=== PATIENT | male | born 1980 | race Caucasian/White ===

== ENCOUNTER 2016-10-17 10:16 | Inpatient (IN) | payer OTHER, MEDICAID ==
[2016-10-17] MEDS ORDERED: FENTANYL CITRATE INJ/PF 100 MCG/2 ML AMPUL ONE (10:22)
[2016-10-17] MEDS ORDERED: FENTANYL CITRATE INJ/PF 100 MCG/2 ML AMPUL IV ONE ×2 (10:23→11:06)
[2016-10-17] MEDS ORDERED: NORMAL SALINE 1000 ML 1,000 ML IV ONE (10:24)
--- NOTE | 2016-10-17 10:37 | ER Document Report ---
ED General - General Stated Complaint: FALL/LEG INJURY Mode of Arrival: Medic Information source: Patient, Emergency Med Personnel Notes: 36-year-old male presents as a level II trauma after falling off a roof 10 feet landing on his feet. Patient denies any other injuries except for his feet. Denies any chest pain back pain neck pain or head injury Patient given 2 mg of Dilaudid prior to arrival TRAVEL OUTSIDE OF THE [place] IN LAST 30 DAYS: No - HPI Onset: Just prior to arrival Onset/Duration: Sudden Quality of pain: Sharp Severity: Severe Pain Level: 5 Associated symptoms: Body/muscle aches Exacerbated by: Movement Relieved by: Denies Similar symptoms previously: No Recently seen / treated by doctor: No - Related Data Allergies/Adverse Reactions: No Known Allergies Allergy (Unverified 03/14/14 12:07) Past Medical History - Social History Smoking Status: Current Every Day Smoker Cigarette use (# per day): Yes Chew tobacco use (# tins/day): No Smoking Education Provided: No Family History: DM, Hypertension Pulmonary Medical History: Reports: Hx Asthma Endocrine Medical History: Reports: Hx Diabetes Mellitus Type 2. Denies: Hx Diabetes Mellitus Type 1 Renal/ Medical History: Reports: Hx Kidney Stones GI Medical History: Reports: Hx Gastroesophageal Reflux Disease Psychiatric Medical History: Reports: Hx Post Traumatic Stress Disorder Denies: Hx Depression Past Surgical History: Reports: Hx Appendectomy - Immunizations Immunizations up to date: Yes Hx Diphtheria, Pertussis, Tetanus Vaccination: Yes Hx Pneumococcal Vaccination: 03/31/09 Course - Re-evaluation Re-evalutation: 10/17/16 10:24 Dr hernandez paged 10/17/16 10:37 Spoke with orthopedic, he is unable to evaluate patient until around 12:30, he is willing to admit patient is cleared by surgery 10/17/16 11:22 pulses are still noted throughout, will consult surgery to evaluate will get ocnsent for conscious sedation 10/17/16 11:57 Dr Melendez evaluated patient cleared otherwise, dr hernandez will admit . Procedures - Conscious Sedation Conscious sedation Time started: 10:38 Time completed: 10:50 Consent obtained: Yes Indication: ankle reduction Prior complications: Procedural sedation Emergent conditions applies.: E. - ASA Classification Airway Evaluation: Normal anatomy Mallampati Classification: Class 1 Used during procedure: Suction available, IV access obtained, Pulse ox on pt., automotive accessory installer on pt. Medications administered: Diprivan Reversal agents: None I personally performed/intraservice time: Sedation, Procedure, 30 min or less Complications: No - Immobilization Left Knee Time completed: 10:45 Pre-Proc Neuro Vasc Exam: Normal Immobilizer type: Knee immobilizer Performed by: Provider assisted, PCT Post-Proc Neuro Vasc Exam: Normal Alignment checked and good: Yes Right Ankle Time completed: 11:40 Pre-Proc Neuro Vasc Exam: Normal Immobilizer type: Long leg posterior, Posterior ankle Performed by: PCT Post-Proc Neuro Vasc Exam: Normal Alignment checked and good: Yes - Joint Reduction/Fracture Care Right Ankle Time completed: 11:40 Consent obtained: Yes Conscious sedation: Yes Pre-procedure NV exam: Yes Fracture: Closed Post-procedure NV exam: Yes Post-reduction x-ray: Joint reduced Reduction attempts: 2 - dislocated when patient moved Complications: No - pulses present throughout Critical Care Note - Critical Care Note Total time excluding time spent on procedures (mins): 45 Comments: 45 minutes of critical care time spent in direct contact evaluating and reevaluating the patient, treating symptoms, reviewing labs and studies and speaking with family and consultants excluding any procedures Discharge - Discharge Clinical Impression: fall greater than 10 feet, Traumatic injury Fracture dislocation of ankle Qualifiers: Encounter type: initial encounter Fracture type: closed Laterality: right Qualified Code(s): S82.891A - Other fracture of right lower leg, initial encounter for closed fracture Closed fracture of proximal end of left tibia Qualifiers: Encounter type: initial encounter Fracture morphology: other fracture Qualified Code(s): S82.192A - Other fracture of upper end of left tibia, initial encounter for closed fracture Condition: Fair Disposition: ADMITTED INPATIENT [facility] Surgical Floor
[2016-10-17] MEDS ORDERED: PROPOFOL INJ 200 MG/20 ML VIAL IV ONE (11:22)
[2016-10-17] MEDS ORDERED: MORPHINE SULFATE 10 MG/ML INJ IV ONE (12:09)
[2016-10-17] MEDS ORDERED: OXYCODONE-ACETAMINOPHEN 5-325 MG TABLET PO PRN (13:12)
[2016-10-17] MEDS ORDERED: HYDROMORPHONE HCL INJ/PF 2 MG/ML AMPULE IV ONE (13:43)
[2016-10-17] MEDS ORDERED: ONDANSETRON HCL INJ/PF 4 MG/2 ML SDV IV ONE (13:59)
[2016-10-17] MEDS ORDERED: ENOXAPARIN SODIUM INJ 40 MG/0.4 ML DISP.SYRIN SUBCUT ONE ×2 (14:00→18:30)
[2016-10-17 14:04] LABS: ANION GAP 19 (5-19); BLOOD UREA NITROGEN 13 mg/dL (7-20); CALCIUM 9.6 mg/dL (8.4-10.2); CARBON DIOXIDE 20 mmol/L (22-30); CHLORIDE 105 mmol/L (98-107); CREATININE RESULT 0.64 mg/dL (0.52-1.25); GLUCOSE 118 mg/dL (75-110); POTASSIUM 4.7 mmol/L (3.6-5.0); SODIUM 143.5 mmol/L (137-145)
[2016-10-17] MEDS: ONDANSETRON HCL INJ/PF 4 MG/2 ML SDV IV PRN ×2 (15:21→21:52)
[2016-10-17] MEDS ORDERED: ACETAMINOPHEN 100 ML IV ONE (16:30)
[2016-10-17] MEDS: HYDROMORPHONE HCL INJ/PF 2 MG/ML AMPULE IV PRN ×2 (18:03→21:52)
[2016-10-17] MEDS: RINGERS SOLUTION,LACTATED 1,000 ML IV PRN (18:06)
--- NOTE | 2016-10-17 18:33 | PDOC H&P ---
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 Patient was brought to the emergency room due to his inability to ambulate due to bilateral lower extremity injuries. Patient had significant pain at presentation. X-rays demonstrated fracture versus plateau and right ankle. While in the emergency patient underwent closed reduction of his right ankle fracture dislocation was placed in a splint. He has been receiving Percocet and Dilaudid some relief. Patient denies numbness or tingling. Pain 10/10 with motion but currently 7/10. Patient denies headache dizziness loss of consciousness. Denies chest pain or shortness of breath. No abdominal discomfort. Past Medical History Pulmonary Medical History: Reports: Asthma Endocrine Medical History: Reports: Diabetes Mellitus Type 2 Denies: Diabetes Mellitus Type 1 GI Medical History: Reports: Gastroesophageal Reflux Disease Psychiatric Medical History: Reports: Post Traumatic Stress Disorder Denies: Depression Past Surgical History Past Surgical History: Reports: Appendectomy Social History Smoking Status: Former Smoker Cigarettes Packs Per Day: 1 Cigars Per Day: 0 Pipes Per Day: 0 Number of Years Smokin Last Time Smoked: 07/31/2016 Frequency of Alcohol Use: Social Hx Recreational Drug Use: No Hx Prescription Drug Abuse: No - Advance Directive Resuscitation Status: Full Code Family History Family History: DM, Hypertension Parental Family History Reviewed: Yes Children Family History Reviewed: Yes Sibling(s) Family History Reviewed.: No Medication/Allergy Home Medications: Albuterol Sulfate [Proair HFA Inhalation Aerosol 8.5 gm MDI] 2 puff IH Q4HP PRN 10/17/16 Budesonide/Formoterol Fumarate [Symbicort HFA 160-4.5 mcg Inhaler 6 gm] 1 puff IH Q12HP PRN 10/17/16 Montelukast Sodium [Singulair 10 mg Tablet] 10 mg PO DAILYP PRN 10/17/16 Allergies/Adverse Reactions: No Known Allergies Allergy (Unverified 03/14/14 12:07) Review of Systems Constitutional: ABSENT: chills, fever(s), headache(s), weight gain, weight loss Eyes: ABSENT: visual disturbances Ears: ABSENT: hearing changes Cardiovascular: ABSENT: chest pain, dyspnea on exertion, edema, orthropnea, palpitations Respiratory: ABSENT: cough, hemoptysis Gastrointestinal: PRESENT: other - Nausea. ABSENT: abdominal pain, constipation , diarrhea, hematemesis, hematochezia, nausea, vomiting Genitourinary: ABSENT: dysuria, hematuria Musculoskeletal: PRESENT: as per HPI Integumentary: ABSENT: rash, wounds Neurological: ABSENT: abnormal gait, abnormal speech, confusion, dizziness, focal weakness, syncope Psychiatric: ABSENT: anxiety, depression, homidical ideation, suicidal ideation Endocrine: ABSENT: cold intolerance, heat intolerance, menstrual abnormalities, polydipsia, polyuria Hematologic/Lymphatic: ABSENT: easy bleeding, easy bruising, lymphadenopathy Physical Exam Vital Signs: Temp Pulse Resp BP Pulse Ox 98.5 F 97 14 135/70 H 97 10/17/16 16:27 10/17/16 16:27 10/17/16 16:27 10/17/16 16:27 10/17/16 16:27 Intake & Output 10/16/16 10/17/16 10/18/16 06:59 06:59 06:59 Weight 85.4 kg General appearance: PRESENT: no acute distress, well-developed, well-nourished Head exam: PRESENT: atraumatic, normocephalic Eye exam: PRESENT: conjunctiva pink, EOMI, PERRLA. ABSENT: scleral icterus Ear exam: PRESENT: normal external ear exam Mouth exam: PRESENT: moist, tongue midline Neck exam: PRESENT: full ROM. ABSENT: carotid bruit, JVD, lymphadenopathy, thyromegaly Cardiovascular exam: PRESENT: RRR. ABSENT: diastolic murmur, rubs, systolic murmur Pulses: PRESENT: normal dorsalis pedis pul, +2 pedal pulses bilateral Vascular exam: PRESENT: normal capillary refill GI/Abdominal exam: PRESENT: normal bowel sounds, soft. ABSENT: distended, guarding, mass, organolmegaly, rebound, tenderness Rectal exam: PRESENT: deferred Musculoskeletal exam: PRESENT: other - Left lower extremity: Knee immobilizer removed. Compartments soft and compressible no sign of compartment syndrome. Minimal effusion. Intact plantar flexion/dorsiflexion. No calf tenderness. No pain with passive stretch. No sensory deficits. Dorsalis pedis pulse 2+. Left lower extremity: Splint clean/dry/intact. Intact flexion extension of the toes. Cap refill less than 2 seconds. No pain with passive stretch. Cap refill less than 2 seconds. Tertiary exam: No tenderness along the cervical spine or bilateral upper extremity. No abdominal discomfort. No lumbar tenderness. Neurological exam: PRESENT: alert, awake, oriented to person, oriented to place , oriented to time, oriented to situation, CN II-XII grossly intact. ABSENT: motor sensory deficit Psychiatric exam: PRESENT: appropriate affect, normal mood. ABSENT: homicidal ideation, suicidal ideation Skin exam: PRESENT: dry, intact, warm. ABSENT: cyanosis, rash Results Impressions: Abdomen/Pelvis CT 10/17/16 10:22 IMPRESSION: Nothing acute. Cervical Spine CT 10/17/16 10:22 IMPRESSION: Old left paracentral calcified disc protrusion with moderate left foraminal narrowing. No acute fracture or malalignment Chest CT 10/17/16 10:22 IMPRESSION: Nothing acute. Femur X-Ray 10/17/16 10:22 IMPRESSION: No acute fracture identified. Tibia/Fibula X-Ray 10/17/16 10:22 IMPRESSION: 1. Fracture dislocation of the tibiotalar joint. There is a fracture of the tibia most likely the medial malleolus which is displaced toward the at talus on the PA projection. 2. Comminuted fracture of the distal fibula. 3. Nondisplaced proximal right fibular fracture. 4. Comminuted proximal tibial fracture which extends through the articular surface. Ankle X-Ray 10/17/16 11:55 IMPRESSION: Fractures of the distal fibula and medial malleolus. Lower Extremity CT 10/17/16 11:56 IMPRESSION: Comminuted left proximal tibia fracture extending through the articular surfaces of the medial and lateral tibial plateaus as well as the interspinous region. About 5 mm of depression of the articular surface posterior half of the medial and lateral tibial plateaus is seen on the sagittal reconstruction views. Status: Image reviewed by me - 3 views of the right ankle demonstrates ankle fracture dislocation with medial malleolar fracture and fibula fracture. Disruption of the syndesmosis. Ankle fracture dislocation well reduced concentrically on post reduction radiographs. Multiple views of the left lower extremity study demonstrates comminuted intra-articular tibial plateau fracture. CT scan confirms comminution along the intercondylar eminences with coronal split of the medial plateau and lateral plateau involvement. CT scan of the cervical spine demonstrates chronic changes no acute abnormality appreciated. Assessment & Plan - Diagnosis (1) Closed fracture of left proximal tibia Qualifiers: Encounter type: initial encounter Fracture morphology: other fracture Qualified Code(s): S82.192A - Other fracture of upper end of left tibia, initial encounter for closed fracture Is this a current diagnosis for this admission?: Yes (2) Fracture dislocation of ankle Qualifiers: Encounter type: initial encounter Fracture type: closed Laterality : right Qualified Code(s): S82.891A - Other fracture of right lower leg, initial encounter for closed fracture Is this a current diagnosis for this admission?: YesPlan: I have reviewed patient's radiographs and studies which demonstrates to high energy injuries including a bicondylar left tibial plateau fracture and a right ankle fracture dislocation. Today we discussed treatment options and the severity of his injury along with prognosis. Patient understands he is high risk for posttraumatic arthritis for both the ankle and tibial plateau. Given the high energy nature both injuries is also risk for compartment syndrome thus I stressed the importance of elevation to decrease swelling currently there is no signs or symptoms of compartment syndrome. Given the bilateral nature we will proceed with ORIF right ankle with syndesmotic fixation first and allow swelling to subside at the left tibial plateau and proceed with that at a later date. In the meantime patient will receive 1 dose of Lovenox due to the bilateral lower extremity nature of his injury and no other alternative for DVT prophylaxis. We have discussed with the patient the alternatives for further care of this condition. They desire to proceed with surgical intervention. I explained to them the nature of the operation to be performed and the expected postoperative course. The possibility of complications is explained and these could involve anesthetic complications, posttraumatic arthritis, chronic pain, excessive bleeding, infection, injury to surrounding nerves, vessels and tendons, bruising , healing difficulties, scar formation, posttraumatic arthritis and failure to relieve symptoms. The patient expresses the desire to proceed with the operation.
[2016-10-17] MEDS: PROMETHAZINE HCL INJ 25 MG/1 ML VIAL IV PRN (18:48)
[2016-10-17] MEDS: MORPHINE SULFATE 10 MG/ML INJ IV PRN (20:50)
[2016-10-17] MEDS: DIAZEPAM 2 MG TABLET PO PRN (21:52)
[2016-10-17] MEDS: OXYCODONE-ACETAMINOPHEN 5-325 MG TABLET PO PRN (21:53)
[2016-10-18] MEDS: MORPHINE SULFATE 10 MG/ML INJ IV PRN ×4 (00:50→15:36)
[2016-10-18] MEDS: PROMETHAZINE HCL INJ 25 MG/1 ML VIAL IV PRN (00:50)
[2016-10-18] MEDS: HYDROMORPHONE HCL INJ/PF 2 MG/ML AMPULE IV PRN ×4 (01:56→20:46)
[2016-10-18] MEDS: OXYCODONE-ACETAMINOPHEN 5-325 MG TABLET PO PRN ×3 (03:46→21:59)
[2016-10-18 07:03] LABS: ABSOLUTE BASOPHILS # (AUTO) 0.1 10^3/uL (0.0-0.2); ABSOLUTE EOSINOPHILS # (AUTO) 0.2 10^3/uL (0.0-0.6); ABSOLUTE LYMPHOCYTES (AUTO) 1.8 10^3/uL (0.5-4.7); ABSOLUTE MONOCYTES (AUTO) 1.1 10^3/uL (0.1-1.4); ABSOLUTE NEUT (AUTO) 5.9 10^3/uL (1.7-8.2); BASOPHILS % (AUTO) 0.7 % (0-2); EOSINOPHILS % (AUTO) 1.8 % (0-6); HEMATOCRIT 34.1 % (37.9-51.0); HEMOGLOBIN 12.1 g/dL (13.5-17.0); HGB HCT DIFFERENCE 2.2; LYMPHOCYTES % (AUTO) 19.7 % (13-45); MEAN CORPUSCULAR HGB CONC 35.6 g/dL (32.0-36.0); MEAN CORPUSCULAR VOLUME 96 fl (80-97); MONOCYTES % (AUTO) 11.8 % (3-13); RED BLOOD COUNT 3.56 10^6/uL (4.35-5.55); RED CELL DISTRIBUTION WIDTH 12.7 % (11.5-14.0); WHITE BLOOD COUNT 8.9 10^3/uL (4.0-10.5)
[2016-10-18] MEDS ORDERED: ONDANSETRON HCL INJ/PF 4 MG/2 ML SDV ONE (07:47)
[2016-10-18] MEDS ORDERED: SUCCINYLCHOLINE CHLORIDE INJ 200 MG/10 ML VIAL ONE (07:47)
[2016-10-18] MEDS ORDERED: DEXAMETHASONE SOD PHOSPHATE INJ 4 MG/1 ML VIAL ONE (07:47)
[2016-10-18] MEDS ORDERED: LIDOCAINE 2% INJ-PF (20 MG/ML) 10 ML AMPUL ONE (07:47)
--- NOTE | 2016-10-18 08:01 | PDOC PROGRESS REPORT ---
Subjective Progress Note for:: 10/18/16 Subjective:: patient seen and evaluated this morning. Lying in bed comfortable. Continues to have pain with some improvement with the pain medication. Had difficulty sleeping last night. Denies numbness or tingling. Physical Exam Vital Signs: Temp Pulse Resp BP Pulse Ox 98.5 F 68 18 126/71 H 95 10/17/16 20:43 10/17/16 20:43 10/17/16 20:43 10/17/16 20:43 10/17/16 20:43 Intake & Output 10/17/16 10/18/16 10/19/16 06:59 06:59 06:59 Intake Total 207 Output Total 1900 Balance -1693 Weight 85.4 kg General appearance: PRESENT: no acute distress, cooperative Musculoskeletal exam: PRESENT: other - Left lower extremity: Moderate effusion. Compartments swollen but compressible. No pain with passive stretch. No sign of compartment syndrome. Intact plantar flexion/dorsiflexion. No sensory deficits. Dorsalis pedis pulse 2+. Cap refill less than 2 seconds. Right lower extremity: Splint clean/dry/intact. Intact flexion extension of the toes. Cap refill less than 2 seconds. No sensory deficits. Results Laboratory Results: 10/18/16 05:47 10/18/16 05:47 WBC 8.9 RBC 3.56 L Hgb 12.1 L Hct 34.1 L MCV 96 MCH 34.0 H MCHC 35.6 RDW 12.7 Plt Count 195 Seg Neutrophils % 66.0 Lymphocytes % 19.7 Monocytes % 11.8 Eosinophils % 1.8 Basophils % 0.7 Absolute Neutrophils 5.9 Absolute Lymphocytes 1.8 Absolute Monocytes 1.1 Absolute Eosinophils 0.2 Absolute Basophils 0.1 Impressions: Abdomen/Pelvis CT 10/17/16 10:22 IMPRESSION: Nothing acute. Cervical Spine CT 10/17/16 10:22 IMPRESSION: Old left paracentral calcified disc protrusion with moderate left foraminal narrowing. No acute fracture or malalignment Chest CT 10/17/16 10:22 IMPRESSION: Nothing acute. Femur X-Ray 10/17/16 10:22 IMPRESSION: No acute fracture identified. Tibia/Fibula X-Ray 10/17/16 10:22 IMPRESSION: 1. Fracture dislocation of the tibiotalar joint. There is a fracture of the tibia most likely the medial malleolus which is displaced toward the at talus on the PA projection. 2. Comminuted fracture of the distal fibula. 3. Nondisplaced proximal right fibular fracture. 4. Comminuted proximal tibial fracture which extends through the articular surface. Ankle X-Ray 10/17/16 11:55 IMPRESSION: Fractures of the distal fibula and medial malleolus. Lower Extremity CT 10/17/16 11:56 IMPRESSION: Comminuted left proximal tibia fracture extending through the articular surfaces of the medial and lateral tibial plateaus as well as the interspinous region. About 5 mm of depression of the articular surface posterior half of the medial and lateral tibial plateaus is seen on the sagittal reconstruction views. Assessment & Plan - Diagnosis (1) Closed fracture of left proximal tibia Qualifiers: Encounter type: initial encounter Fracture morphology: other fracture Qualified Code(s): S82.192A - Other fracture of upper end of left tibia, initial encounter for closed fracture Is this a current diagnosis for this admission?: YesPlan: Patient is comminuted intra-articular tibial plateau fracture and right ankle fracture dislocation with syndesmotic disruption. At this point the plan will be to proceed with operative intervention of the tibial plateau or ankle and then proceed with the opposite extremity a later date. We will continue to monitor his pain and symptoms of possible compartment syndrome. (2) Fracture dislocation of ankle Qualifiers: Encounter type: initial encounter Fracture type: closed Laterality : right Qualified Code(s): S82.891A - Other fracture of right lower leg, initial encounter for closed fracture Is this a current diagnosis for this admission?: Yes
[2016-10-18] MEDS: ENOXAPARIN SODIUM INJ 40 MG/0.4 ML DISP.SYRIN SUBCUT SCH (08:23)
[2016-10-18] MEDS: DIAZEPAM 2 MG TABLET PO PRN (10:06)
[2016-10-18] MEDS ORDERED: BUPIVACAINE HCL 0.5 % INJ/PF 30 ML SDV ONE (12:52)
[2016-10-18] MEDS: RINGERS SOLUTION,LACTATED 1,000 ML IV PRN ×2 (15:39→20:46)
[2016-10-18] MEDS ORDERED: CEFAZOLIN INJ 1 GM VIAL ONE (16:34)
[2016-10-18] MEDS ORDERED: FENTANYL CITRATE INJ/PF 100 MCG/2 ML AMPUL ONE ×3 (16:43→19:37)
[2016-10-18] MEDS ORDERED: MIDAZOLAM 2 MG/2 ML INJ ONE (16:43)
[2016-10-18] MEDS ORDERED: HYDROMORPHONE HCL INJ/PF 2 MG/ML AMPULE ONE (16:43)
[2016-10-18] MEDS ORDERED: PROPOFOL INJ 200 MG/20 ML VIAL IV ONE (16:44)
[2016-10-18] MEDS ORDERED: ACETAMINOPHEN 100 ML IV ONE (16:44)
[2016-10-18] MEDS ORDERED: PROMETHAZINE HCL INJ 25 MG/1 ML VIAL IV PRN (17:59)
[2016-10-18] MEDS ORDERED: MORPHINE SULFATE 10 MG/ML INJ IV PRN (17:59)
[2016-10-18] MEDS ORDERED: DIPHENHYDRAMINE HCL 50 MG/ML VIAL IV PRN (17:59)
[2016-10-18] MEDS ORDERED: MEPERIDINE HCL/PF INJ 25 MG/1 ML DISP.SYRIN IV PRN (17:59)
[2016-10-18] MEDS ORDERED: FENTANYL CITRATE INJ/PF 100 MCG/2 ML AMPUL IV PRN ×3 (17:59)
--- NOTE | 2016-10-18 19:09 | Progress Note ---
Provider Note Provider Note: In the preoperative holding area patient was noted to have increased pain which has been fairly constant but increased recently. Physical exam: Left lower extremity: Compartments are firm more swollen and less compressible. Significant pain with passive range of motion of the digits and ankle. Dorsalis pedis pulse 2+. Cap refill less than 2 seconds. No sensory deficits. Left tibial plateau fracture suspected compartment syndrome: Plan: Given patient's findings on preoperative evaluation. I have recommended intraoperative compartment pressure checks. Depending on these findings this will dictate the operative procedure as needed open reduction internal fixation versus external fixation with fasciotomies. Patient understands the risks and benefits of the surgical procedures including loss of limb with compartment syndrome. Patient verbalized understanding and consented for the procedure.
--- NOTE | 2016-10-18 19:32 | Operative Report ---
Operative Report PREOPERATIVE DIAGNOSIS: Left Tibial Plateau Fracture. Right Bimalleolar Ankle Fracture w/ Syndesmotic Disruption POSTOPERATIVE DIAGNOSIS: Same OPERATION: Emergent Four Compartment Lower Leg Fasciotomies w/ Placement of Wound VAC. External Fixation Left Tibial Plateau SURGEON: HUNTER DARLING ANESTHESIA: GA COMPLICATIONS: None ESTIMATED BLOOD LOSS: 25cc PROCEDURE: Indication for above procedure: 36-year-old male who sustained a left foot fall onto his bilateral lower extremities. He was emergently brought to emergency room where x-rays demonstrated ankle fracture dislocation and left tibial plateau fracture. In the preoperative holding area patient noted to have increased pain thus we discussed alternate operative care including possible external fixation and fasciotomy if patient's compartment are elevated. Patient understood these risks including risks and benefits of ORIF of his left tibial plateau. Patient verbalized understanding consented for the procedure. Procedure In Detail: Patient was seen and evaluated in the preoperative holding area. The left lower extremity was initialized and marked. Patient received 2g of Ancef IV for bacterial prophylaxis. Patient was taken back to the operative room where transferred to the operative table and placed under general anesthesia. Once they were adequately anesthetized a nonsterile tourniquet was placed on the left lower extremity. A surgical team debriefing was performed ensuring all instrumentation was available, the surgical procedure was discussed with possible concerns reviewed. A timeout was done identifying correct patient, procedure and extremity everyone in attendance agree with this and verbalized no concerns. The leg was prepped with alcohol. Using the Skyla needle compartment pressures were measured adjacent to the fracture. The anterior compartment pressure was 54 mmHg, lateral compartment 45, posterior 35 deep posterior 56 patient's diastolic pressure at this juncture was 70. At that point a decision to proceed with fasciotomies and external fixation. The lower extremity was prepped with ChloraPrep. It was then exsanguinated and tourniquet inflated to 300 mmHg. A 15 cm skin incision was utilized 2 cm anterior to the fibular shaft. Blunt dissection was performed down to the fascia. A transverse incision is made over the fascia the anterior and lateral compartments allowing clearview the intramuscular septum. The superficial peroneal nerve was identified adjacent to the septum. With blunt tip scissors I spread above and below the fascia on both sides of the septum. A transverse incision was made within the anterior compartment and the fascia was released aiming proximally for the patella and distally towards the center of the ankle. I then made a small transverse incision in the lateral compartment. I spread above and below the fascia and released the compartment direct incision was towards the lateral malleolus once again the superficial peroneal nerve was identified passing into the anterior compartment. I then turned my attention to the posterior and deep posterior compartments. A 15cm posteriomedial incision was made along the posterior medial aspect of the tibia. The saphenous vein was identified along with the nerve and retracted anteriorly. The superficial posterior compartment fascia was then identified. A transverse skin incision was made and using blunt-tip scissors I spread above and below the fascia which was released proximally and distally. I then elevated the soleus origin off the proximal one third of the tibia and identified the underlying FDL and tibialis posterior fascia and muscle bellies. Once again a small transverse skin incision was made within the FDL fascia taking special care to protect the neurovascular bundle lying deep to the FDL between the posterior tibialis and soleus. Once this was released in its entirety the wounds were copiously irrigated with normal saline and I turned my attention to external fixation. Two stab incisions were made proximal to the knee joint overlying the anterior aspect of the femur. Blunt dissection was performed with a hemostat down to the anterior cortex. I then drilled bicortically and placed the appropriate- sized 5 mm external fixator pins from the Kai external fixation device just engaging the cortex. Similarly 2 stab incisions were made along the anterior aspect of the tibia blunt dissection once again performed with a hemostat these were pre-drilled bicortically and the appropriate size 5 mm external fixator pins placed engaging the far cortex. I then mounted to external fixation bars proximally and distally connected at the fracture site. Maintaining close distance of the bars to the lower extremity provide further stabilization. Gentle traction was performed and under C-arm fluoroscopy I confirmed maintenance of length. Patient continued to have depression of the lateral compartment with posterior displacement of the posterior medial fragment but was living stable in the external fixator. The fasciotomy wounds once again copiously irrigated with normal saline. A wound VAC was placed laterally immediately connected by a bridge protecting the underlying skin. It was then hooked up to the vacuum device set a continuous 100 mmHg. I got good seal without leak. The external fixator pins were irrigated and covered with Xeroform and Kerlex. Sponge counts, instrument counts, needle counts counts were correct. Patient was then awoken from anesthesia. Transferred from the operating room table to the operating room stretcher. There was no intraoperative complications patient tolerated procedure well stable to PACU. Postoperative plan: Patient will be for definitive fixation of the patient's right ankle this week and likely discharged home and set up as outpatient for definitive treatment pending patient's soft tissue status.
[2016-10-19] MEDS: HYDROMORPHONE HCL INJ/PF 2 MG/ML AMPULE IV PRN ×4 (00:46→21:34)
[2016-10-19] MEDS: OXYCODONE-ACETAMINOPHEN 5-325 MG TABLET PO PRN ×3 (04:02→17:49)
--- NOTE | 2016-10-19 07:33 | PDOC PROGRESS REPORT ---
Subjective Progress Note for:: 10/19/16 Subjective:: Patient seen and evaluated this morning. States pain has improved after fasciotomy. States pressure has resolved. Denies numbness or tingling. Pain well-controlled with pain medication today. Physical Exam Vital Signs: Temp Pulse Resp BP Pulse Ox 98.6 F 98 20 132/72 H 94 10/19/16 03:57 10/19/16 03:57 10/19/16 03:57 10/19/16 03:57 10/19/16 03:57 Intake & Output 10/18/16 10/19/16 10/20/16 06:59 06:59 06:59 Intake Total 207 6127 Output Total 1900 2900 Balance -1693 3227 Weight 85.4 kg Musculoskeletal exam: PRESENT: other - Left lower extremity: External fixator intact. Blood drainage along the Kerlix at the site of the pins. Wound VAC intact good seal no leakage. Intact plantar flexion/dorsiflexion. Compartments soft and compressible. No sign of compartment syndrome. Cap refill less than 2 seconds. Dorsalis pedis pulse/posterior tibial pulses 2+. No sensory deficits. Right ankle: Splint clean/dry/intact intact flexion extension of the toes. Cap refill less than 2 seconds. No pain with passive stretch. Compartments soft and compressible no sign of compartment syndrome. Results Laboratory Results: 10/18/16 05:47 Impressions: Abdomen/Pelvis CT 10/17/16 10:22 IMPRESSION: Nothing acute. Cervical Spine CT 10/17/16 10:22 IMPRESSION: Old left paracentral calcified disc protrusion with moderate left foraminal narrowing. No acute fracture or malalignment Chest CT 10/17/16 10:22 IMPRESSION: Nothing acute. Femur X-Ray 10/17/16 10:22 IMPRESSION: No acute fracture identified. Tibia/Fibula X-Ray 10/17/16 10:22 IMPRESSION: 1. Fracture dislocation of the tibiotalar joint. There is a fracture of the tibia most likely the medial malleolus which is displaced toward the at talus on the PA projection. 2. Comminuted fracture of the distal fibula. 3. Nondisplaced proximal right fibular fracture. 4. Comminuted proximal tibial fracture which extends through the articular surface. Ankle X-Ray 10/17/16 11:55 IMPRESSION: Fractures of the distal fibula and medial malleolus. Lower Extremity CT 10/17/16 11:56 IMPRESSION: Comminuted left proximal tibia fracture extending through the articular surfaces of the medial and lateral tibial plateaus as well as the interspinous region. About 5 mm of depression of the articular surface posterior half of the medial and lateral tibial plateaus is seen on the sagittal reconstruction views. Fluoroscopy 10/18/16 00:00 IMPRESSION: Please see combined report for performance of procedure and radiologic supervision and interpretation. Knee X-Ray 10/18/16 00:00 IMPRESSION: IMAGE(S) OBTAINED DURING PROCEDURE. Assessment & Plan - Diagnosis (1) Closed fracture of left proximal tibia Qualifiers: Encounter type: initial encounter Fracture morphology: other fracture Qualified Code(s): S82.192A - Other fracture of upper end of left tibia, initial encounter for closed fracture Is this a current diagnosis for this admission?: YesPlan: Patient underwent emergent fasciotomy on 10/18/16 along external fixator for temporary stabilization of his tibial plateau fracture. Plan will be proceed with wound VAC change on 10/21/16 and concomitantly performed ORIF of either the tibial plateau with closure of the fasciotomies versus ORIF of the right ankle. Pending on intraoperative findings we will then set him up for a third and likely final procedure of either the tibial plateau or ankle depending on which extremity is definitively fixed on 10/21. (2) Fracture dislocation of ankle Qualifiers: Encounter type: initial encounter Fracture type: closed Laterality : right Qualified Code(s): S82.891A - Other fracture of right lower leg, initial encounter for closed fracture Is this a current diagnosis for this admission?: Yes
[2016-10-19] MEDS: ENOXAPARIN SODIUM INJ 40 MG/0.4 ML DISP.SYRIN SUBCUT SCH (07:57)
[2016-10-19] MEDS: MORPHINE SULFATE 10 MG/ML INJ IV PRN ×3 (07:57→20:09)
[2016-10-19] MEDS: RINGERS SOLUTION,LACTATED 1,000 ML IV PRN (11:19)
[2016-10-20] MEDS: OXYCODONE-ACETAMINOPHEN 5-325 MG TABLET PO PRN ×3 (00:07→19:53)
[2016-10-20] MEDS: MORPHINE SULFATE 10 MG/ML INJ IV PRN ×2 (00:51→05:12)
[2016-10-20] MEDS: HYDROMORPHONE HCL INJ/PF 2 MG/ML AMPULE IV PRN ×5 (01:55→23:02)
[2016-10-20] MEDS: RINGERS SOLUTION,LACTATED 1,000 ML IV PRN ×2 (01:56→18:38)
[2016-10-20 04:57] LABS: HEMATOCRIT 28.8 % (37.9-51.0); HEMOGLOBIN 10.3 g/dL (13.5-17.0); HGB HCT DIFFERENCE 2.1; MEAN CORPUSCULAR HGB CONC 35.9 g/dL (32.0-36.0); MEAN CORPUSCULAR VOLUME 95 fl (80-97); RED BLOOD COUNT 3.04 10^6/uL (4.35-5.55); RED CELL DISTRIBUTION WIDTH 12.1 % (11.5-14.0); WHITE BLOOD COUNT 9.4 10^3/uL (4.0-10.5)
[2016-10-20] MEDS ORDERED: DIPHENHYDRAMINE HCL 50 MG/ML VIAL IV PRN (07:41)
--- NOTE | 2016-10-20 07:45 | PDOC PROGRESS REPORT ---
Subjective Progress Note for:: 10/20/16 Subjective:: Patient seen and evaluated this morning. Has increased pain at the site of his fracture in the knee. Does state the pain is somewhat different than it was previously. Denies numbness or tingling. Physical Exam Vital Signs: Temp Pulse Resp BP Pulse Ox 98.7 F 85 17 152/88 H 98 10/19/16 23:28 10/19/16 23:28 10/19/16 23:28 10/19/16 23:28 10/19/16 23:28 Intake & Output 10/19/16 10/20/16 10/21/16 06:59 06:59 06:59 Intake Total 6127 3415 Output Total 2900 8300 Balance 3227 -6305 Weight 85.1 kg Musculoskeletal exam: PRESENT: other - Left lower extremity: Dressing change today. Pin sites clean/dry/intact. Compartments soft and compressible. Intact plantar flexion/dorsiflexion. Dorsalis pedis pulse 2+. Cap refill less than 2 seconds. No pain with passive stretch. No sensory deficits. Right lower extremity: Splint clean/dry/intact. Compartments soft and compressible no sign of compartment. Refill less than 2 seconds. No sensory deficits. Intact flexion extension of the toes. Results Laboratory Results: 10/20/16 03:59 10/20/16 03:59 WBC 9.4 RBC 3.04 L Hgb 10.3 L Hct 28.8 L MCV 95 MCH 34.0 H MCHC 35.9 RDW 12.1 Plt Count 173 Impressions: Abdomen/Pelvis CT 10/17/16 10:22 IMPRESSION: Nothing acute. Cervical Spine CT 10/17/16 10:22 IMPRESSION: Old left paracentral calcified disc protrusion with moderate left foraminal narrowing. No acute fracture or malalignment Chest CT 10/17/16 10:22 IMPRESSION: Nothing acute. Femur X-Ray 10/17/16 10:22 IMPRESSION: No acute fracture identified. Tibia/Fibula X-Ray 10/17/16 10:22 IMPRESSION: 1. Fracture dislocation of the tibiotalar joint. There is a fracture of the tibia most likely the medial malleolus which is displaced toward the at talus on the PA projection. 2. Comminuted fracture of the distal fibula. 3. Nondisplaced proximal right fibular fracture. 4. Comminuted proximal tibial fracture which extends through the articular surface. Ankle X-Ray 10/17/16 11:55 IMPRESSION: Fractures of the distal fibula and medial malleolus. Lower Extremity CT 10/17/16 11:56 IMPRESSION: Comminuted left proximal tibia fracture extending through the articular surfaces of the medial and lateral tibial plateaus as well as the interspinous region. About 5 mm of depression of the articular surface posterior half of the medial and lateral tibial plateaus is seen on the sagittal reconstruction views. Fluoroscopy 10/18/16 00:00 IMPRESSION: Please see combined report for performance of procedure and radiologic supervision and interpretation. Knee X-Ray 10/18/16 00:00 IMPRESSION: IMAGE(S) OBTAINED DURING PROCEDURE. Assessment & Plan - Diagnosis (1) Closed fracture of left proximal tibia Qualifiers: Encounter type: initial encounter Fracture morphology: other fracture Qualified Code(s): S82.192A - Other fracture of upper end of left tibia, initial encounter for closed fracture Is this a current diagnosis for this admission?: YesPlan: Have changed patient's pain medication and hopes to improve his discomfort. Current plan is return to the operating room in 24 hours for wound VAC change possible closure of fasciotomy sites possible ORIF tibial plateau versus wound VAC change and ORIF right ankle. Depending on which extremity is fixed tomorrow the additional extremity will be stabilized early next week. Patient will continue Lovenox. (2) Fracture dislocation of ankle Qualifiers: Encounter type: initial encounter Fracture type: closed Laterality : right Qualified Code(s): S82.891A - Other fracture of right lower leg, initial encounter for closed fracture Is this a current diagnosis for this admission?: Yes
[2016-10-20] MEDS: ENOXAPARIN SODIUM INJ 40 MG/0.4 ML DISP.SYRIN SUBCUT SCH (08:04)
[2016-10-20] MEDS: PREGABALIN 75 MG CAPSULE PO SCH ×2 (09:25→18:35)
[2016-10-20] MEDS: OXYCODONE HCL SR 10 MG TABLET PO SCH ×2 (09:25→21:49)
[2016-10-21] MEDS: OXYCODONE-ACETAMINOPHEN 5-325 MG TABLET PO PRN ×2 (02:10→23:53)
[2016-10-21] MEDS: HYDROMORPHONE HCL INJ/PF 2 MG/ML AMPULE IV PRN ×4 (03:40→21:30)
[2016-10-21] MEDS: LANSOPRAZOLE 30 MG TAB.RAP.DR PO SCH (06:26)
[2016-10-21] MEDS: RINGERS SOLUTION,LACTATED 1,000 ML IV PRN (06:27)
[2016-10-21] MEDS: ENOXAPARIN SODIUM INJ 40 MG/0.4 ML DISP.SYRIN SUBCUT SCH (08:53)
[2016-10-21] MEDS: OXYCODONE HCL SR 10 MG TABLET PO SCH ×2 (10:27→21:15)
[2016-10-21] MEDS: PREGABALIN 75 MG CAPSULE PO SCH ×2 (10:27→21:16)
[2016-10-21] MEDS ORDERED: FENTANYL CITRATE INJ/PF 250 MCG/5 ML AMPULE ONE ×2 (14:38→16:30)
[2016-10-21] MEDS ORDERED: MIDAZOLAM 2 MG/2 ML INJ ONE ×2 (14:38→16:30)
[2016-10-21] MEDS ORDERED: EPHEDRINE SULFATE INJ 50 MG/1 ML AMPULE ONE ×2 (14:39→16:31)
[2016-10-21] MEDS ORDERED: MORPHINE SULFATE 10 MG/ML INJ ONE ×2 (14:39→16:31)
[2016-10-21] MEDS ORDERED: ACETAMINOPHEN 0 ML IV ONE (14:39)
[2016-10-21] MEDS ORDERED: PROPOFOL INJ 200 MG/20 ML VIAL IV ONE ×2 (14:39→16:31)
[2016-10-21] MEDS ORDERED: DEXMEDETOMIDINE INJ 80 MCG/20 ML VIAL IV ONE (14:39)
[2016-10-21] MEDS ORDERED: SUCCINYLCHOLINE CHLORIDE INJ 200 MG/10 ML VIAL ONE (15:18)
[2016-10-21] MEDS ORDERED: LIDOCAINE 2% INJ-PF (20 MG/ML) 10 ML AMPUL ONE (15:18)
[2016-10-21] MEDS ORDERED: ONDANSETRON HCL INJ/PF 4 MG/2 ML SDV ONE (15:18)
[2016-10-21] MEDS ORDERED: METOCLOPRAMIDE HCL INJ/PF 10 MG/2 ML SDV ONE (15:18)
[2016-10-21] MEDS ORDERED: ACETAMINOPHEN 100 ML IV ONE (16:31)
[2016-10-21] MEDS ORDERED: CEFAZOLIN INJ 1 GM VIAL ONE (16:33)
[2016-10-21] MEDS ORDERED: BUPIVACAINE HCL 0.5 % INJ/PF 30 ML SDV ONE (18:36)
[2016-10-21] MEDS ORDERED: PROMETHAZINE HCL INJ 25 MG/1 ML VIAL IV PRN ×2 (19:08)
[2016-10-21] MEDS ORDERED: OXYCODONE-ACETAMINOPHEN 5-325 MG TABLET PO PRN ×2 (19:08)
[2016-10-21] MEDS ORDERED: FENTANYL CITRATE INJ/PF 100 MCG/2 ML AMPUL IV PRN ×3 (19:08)
[2016-10-21] MEDS ORDERED: MORPHINE SULFATE 10 MG/ML INJ IV PRN (19:08)
[2016-10-21] MEDS ORDERED: DIPHENHYDRAMINE HCL 50 MG/ML VIAL IV PRN (19:08)
[2016-10-21] MEDS ORDERED: MEPERIDINE HCL/PF INJ 25 MG/1 ML DISP.SYRIN IV PRN (19:08)
[2016-10-21] MEDS ORDERED: MEPERIDINE HCL/PF INJ 25 MG/1 ML DISP.SYRIN ONE (19:16)
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
[2016-10-21] MEDS: FENTANYL CITRATE INJ/PF 100 MCG/2 ML AMPUL ONE ×2 (19:25→19:30)
[2016-10-21] MEDS ORDERED: HYDROMORPHONE HCL INJ/PF 2 MG/ML AMPULE ONE (19:49)
[2016-10-22] MEDS: CEFAZOLIN 2 GM/D5W RTU 50 ML IV SCH ×4 (01:08→17:17)
[2016-10-22] MEDS: HYDROMORPHONE HCL INJ/PF 2 MG/ML AMPULE IV PRN ×6 (01:49→22:32)
[2016-10-22] MEDS: DIAZEPAM 2 MG TABLET PO PRN ×2 (05:17→17:20)
[2016-10-22] MEDS: LANSOPRAZOLE 30 MG TAB.RAP.DR PO SCH (05:18)
[2016-10-22] MEDS: RINGERS SOLUTION,LACTATED 1,000 ML IV PRN ×2 (06:08→22:29)
[2016-10-22] MEDS: OXYCODONE-ACETAMINOPHEN 5-325 MG TABLET PO PRN (06:55)
[2016-10-22] MEDS: PREGABALIN 75 MG CAPSULE PO SCH ×2 (09:41→17:17)
[2016-10-22] MEDS: ENOXAPARIN SODIUM INJ 40 MG/0.4 ML DISP.SYRIN SUBCUT SCH (09:42)
--- NOTE | 2016-10-22 11:23 | Progress Note ---
Provider Note Provider Note: Emory Medina is a 36-year-old male who presented to the emergency room on after sustaining severe bilateral lower extremity injuries. Patient is self- employed and sustained his injury at work. Upon arrival to the emergency room he was found to have a right ankle fracture dislocation and a comminuted intra- articular left tibial plateau fracture. Up to this point patient has underwent fasciotomies and external fixation for his left tibial plateau fracture and open reduction internal fixation of his right bimalleolar ankle fracture dislocation. Patient still requires definitive open reduction internal fixation of his left tibial plateau fracture. Once fixation is complete patient will maintain nonweightbearing in his bilateral lower extremities for possibly 3 months. Once fracture healing is noted he would then require extensive physical therapy in attempts to return to normal ambulation and activity. Exact prognosis of his recovery is yet to be determined. Thus even the severe nature of the patient's injury he will be totally disabled for up to at least 1 year if not longer pending outcome and healing process. Alec Vazquez DO Orthopaedic Surgery [facility]
[2016-10-22] MEDS: OXYCODONE HCL IR 5 MG TABLET PO PRN ×3 (11:50→20:05)
--- NOTE | 2016-10-22 12:30 | PDOC PROGRESS REPORT ---
Subjective Progress Note for:: 10/22/16 Subjective:: Patient seen and evaluated this morning. Continues to complain of 5/5 pain now worse in the right ankle. Left leg has improved. Also notices some swelling of the foot. Denies numbness or tingling. Physical Exam Vital Signs: Temp Pulse Resp BP Pulse Ox 98.6 F 87 20 160/89 H 99 10/22/16 07:25 10/22/16 07:25 10/22/16 07:25 10/22/16 07:25 10/22/16 07:25 Intake & Output 10/21/16 10/22/16 10/23/16 06:59 06:59 06:59 Intake Total 2565 3706 Output Total 2275 2915 Balance 290 791 Musculoskeletal exam: PRESENT: other - Right lower extremity splint removed incisions well approximated no erythema or drainage. Ecchymosis along the medial aspect of the foot and ankle. Intact flexion extension of the toes however limited. Cap refill less than 2 seconds. Subjective hypoesthesia along the plantar aspect of the great toe no sensory deficits dorsally or laterally. No pain with passive stretch. Compartments soft and compressible no sign of compartment syndrome. Left lower extremity: Ex-Fix intact pin sites clean/dry/intact. Fasciotomy sites normal-appearing. Wound VAC intact no evidence of leakage, good seal. Intact plantar flexion/dorsiflexion. No sensory deficits. Results Laboratory Results: 10/20/16 03:59 Impressions: Abdomen/Pelvis CT 10/17/16 10:22 IMPRESSION: Nothing acute. Cervical Spine CT 10/17/16 10:22 IMPRESSION: Old left paracentral calcified disc protrusion with moderate left foraminal narrowing. No acute fracture or malalignment Chest CT 10/17/16 10:22 IMPRESSION: Nothing acute. Femur X-Ray 10/17/16 10:22 IMPRESSION: No acute fracture identified. Tibia/Fibula X-Ray 10/17/16 10:22 IMPRESSION: 1. Fracture dislocation of the tibiotalar joint. There is a fracture of the tibia most likely the medial malleolus which is displaced toward the at talus on the PA projection. 2. Comminuted fracture of the distal fibula. 3. Nondisplaced proximal right fibular fracture. 4. Comminuted proximal tibial fracture which extends through the articular surface. Lower Extremity CT 10/17/16 11:56 IMPRESSION: Comminuted left proximal tibia fracture extending through the articular surfaces of the medial and lateral tibial plateaus as well as the interspinous region. About 5 mm of depression of the articular surface posterior half of the medial and lateral tibial plateaus is seen on the sagittal reconstruction views. Knee X-Ray 10/18/16 00:00 IMPRESSION: IMAGE(S) OBTAINED DURING PROCEDURE. Ankle X-Ray 10/21/16 00:00 IMPRESSION: IMAGE(S) OBTAINED DURING PROCEDURE. Fluoroscopy 10/21/16 00:00 IMPRESSION: IMAGE(S) OBTAINED DURING PROCEDURE. Assessment & Plan - Diagnosis (1) Closed fracture of left proximal tibia Qualifiers: Encounter type: initial encounter Fracture morphology: other fracture Qualified Code(s): S82.192A - Other fracture of upper end of left tibia, initial encounter for closed fracture Is this a current diagnosis for this admission?: Yes (2) Fracture dislocation of ankle Qualifiers: Encounter type: initial encounter Fracture type: closed Laterality : right Qualified Code(s): S82.891A - Other fracture of right lower leg, initial encounter for closed fracture Is this a current diagnosis for this admission?: YesPlan: Patient now had his right ankle definitively treated. He must continue aggressive elevation and I would anticipate his pain increase given the surgical procedure on the right ankle. Splint was removed today. After splint removal he noticed some numbness that he is unsure was there previously. Once the splint was removed his pain significantly improved. At this point we will plan for definitive fixation of his tibial plateau with closure of his fasciotomy sites early next week area and in the meantime I have adjusted his pain medication and he will begin therapy for at least transfers. He was also encouraged to continue incentive spirometer. Patient received Lovenox for DVT prophylaxis.
[2016-10-22] MEDS: OXYCODONE HCL SR 10 MG TABLET PO SCH (22:32)
[2016-10-23] MEDS: OXYCODONE HCL IR 5 MG TABLET PO PRN ×6 (00:16→22:17)
[2016-10-23] MEDS: CEFAZOLIN 2 GM/D5W RTU 50 ML IV SCH ×5 (00:16→23:18)
[2016-10-23] MEDS: HYDROMORPHONE HCL INJ/PF 2 MG/ML AMPULE IV PRN ×5 (02:06→20:11)
[2016-10-23] MEDS: LANSOPRAZOLE 30 MG TAB.RAP.DR PO SCH (06:18)
[2016-10-23] MEDS: ENOXAPARIN SODIUM INJ 40 MG/0.4 ML DISP.SYRIN SUBCUT SCH (08:40)
[2016-10-23] MEDS: OXYCODONE HCL SR 10 MG TABLET PO SCH ×2 (10:44→22:17)
[2016-10-23] MEDS: PREGABALIN 75 MG CAPSULE PO SCH ×2 (10:44→17:24)
--- NOTE | 2016-10-23 11:22 | PDOC PROGRESS REPORT ---
Subjective Progress Note for:: 10/23/16 Subjective:: Patient seen and evaluated this morning. Patient removed his splint yesterday and states the pain significantly improved. Was able to transfer to a chair today. He states when he gets to the chair the swelling does increase but with elevation improves. Pain is controlled with current pain regimen. Physical Exam Vital Signs: Temp Pulse Resp BP Pulse Ox 97.6 F 71 20 138/83 H 100 10/23/16 07:52 10/23/16 07:52 10/23/16 07:52 10/23/16 07:52 10/23/16 07:52 Intake & Output 10/22/16 10/23/16 10/24/16 06:59 06:59 06:59 Intake Total 3706 2907 Output Total 2915 4000 Balance 791 -1093 Musculoskeletal exam: PRESENT: other - Right lower extremity: Dressing clean/dry /intact. Compartments soft and compressible no sign of compartment syndrome no pain with passive stretch. Patient lacks sensation a 2 cm wide region along the medial aspect of the great toe implant of the great toe that extends 3 cm. Dorsalis pedis pulse 2+. Cap refill less than 2 seconds. Intact flexion extension of the toes. Left lower extremity: External fixator intact. Pin sites clean/dry/intact. Wound VAC dressing intact with good seal no evidence of leak. Intact plantar flexion/dorsiflexion of the left ankle. No pain with passive stretch. No sensory deficits. Results Laboratory Results: 10/20/16 03:59 Impressions: Abdomen/Pelvis CT 10/17/16 10:22 IMPRESSION: Nothing acute. Cervical Spine CT 10/17/16 10:22 IMPRESSION: Old left paracentral calcified disc protrusion with moderate left foraminal narrowing. No acute fracture or malalignment Chest CT 10/17/16 10:22 IMPRESSION: Nothing acute. Femur X-Ray 10/17/16 10:22 IMPRESSION: No acute fracture identified. Tibia/Fibula X-Ray 10/17/16 10:22 IMPRESSION: 1. Fracture dislocation of the tibiotalar joint. There is a fracture of the tibia most likely the medial malleolus which is displaced toward the at talus on the PA projection. 2. Comminuted fracture of the distal fibula. 3. Nondisplaced proximal right fibular fracture. 4. Comminuted proximal tibial fracture which extends through the articular surface. Lower Extremity CT 10/17/16 11:56 IMPRESSION: Comminuted left proximal tibia fracture extending through the articular surfaces of the medial and lateral tibial plateaus as well as the interspinous region. About 5 mm of depression of the articular surface posterior half of the medial and lateral tibial plateaus is seen on the sagittal reconstruction views. Knee X-Ray 10/18/16 00:00 IMPRESSION: IMAGE(S) OBTAINED DURING PROCEDURE. Ankle X-Ray 10/21/16 00:00 IMPRESSION: IMAGE(S) OBTAINED DURING PROCEDURE. Fluoroscopy 10/21/16 00:00 IMPRESSION: IMAGE(S) OBTAINED DURING PROCEDURE. Assessment & Plan - Diagnosis (1) Closed fracture of left proximal tibia Qualifiers: Encounter type: subsequent encounter Fracture morphology: other fracture Qualified Code(s): S82.192A - Other fracture of upper end of left tibia, initial encounter for closed fracture Is this a current diagnosis for this admission?: Yes (2) Fracture dislocation of ankle Qualifiers: Encounter type: subsequent encounter Fracture type: closed Laterality: right Qualified Code(s): S82.891A - Other fracture of right lower leg, initial encounter for closed fracture Is this a current diagnosis for this admission?: YesPlan: Patient will continue progressive elevation the right lower extremity along with flexion extension of the toes and ankle. As for his left tibial plateau fracture. Pain will be to return the operating room on 10/25/16 for definitive open reduction internal fixation of his tibial plateau fracture along with closure. Patient noted somewhat low-grade fever of 100 however it is not documented but I have encouraged incentive spirometer and we will DC his Dumont catheter. We reviewed the patient's planned he has agreed to the above plan.
[2016-10-23] MEDS: RINGERS SOLUTION,LACTATED 1,000 ML IV PRN (15:52)
[2016-10-23] MEDS ORDERED: POLYETHYLENE GLYCOL 3350 POWDER 17 GM/1 PACKET PO ONE (17:30)
[2016-10-24] MEDS: HYDROMORPHONE HCL INJ/PF 2 MG/ML AMPULE IV PRN ×2 (00:34→05:42)
[2016-10-24] MEDS: OXYCODONE HCL IR 5 MG TABLET PO PRN ×4 (03:49→19:40)
[2016-10-24 04:04] LABS: HEMATOCRIT 31.3 % (37.9-51.0); HEMOGLOBIN 11.1 g/dL (13.5-17.0); MEAN CORPUSCULAR HEMOGLOBIN 33.3 pg (27.0-33.4); MEAN CORPUSCULAR HGB CONC 35.5 g/dL (32.0-36.0); MEAN CORPUSCULAR VOLUME 94 fl (80-97); RED BLOOD COUNT 3.34 10^6/uL (4.35-5.55); RED CELL DISTRIBUTION WIDTH 12.2 % (11.5-14.0); WHITE BLOOD COUNT 9.9 10^3/uL (4.0-10.5)
[2016-10-24] MEDS: LANSOPRAZOLE 30 MG TAB.RAP.DR PO SCH (05:42)
[2016-10-24] MEDS: RINGERS SOLUTION,LACTATED 1,000 ML IV PRN ×2 (05:42→21:57)
[2016-10-24] MEDS: CEFAZOLIN 2 GM/D5W RTU 50 ML IV SCH (05:42)
[2016-10-24] MEDS ORDERED: CEFAZOLIN 2 GM/D5W RTU 2 GM/50 ML RTUPB IV PRN (07:59)
--- NOTE | 2016-10-24 08:12 | PDOC PROGRESS REPORT ---
Subjective Progress Note for:: 10/24/16 Subjective:: Patient seen and evaluated this morning. Pain currently controlled. Continues to have some numbness in the right leg. The left leg pain improving. Physical Exam Vital Signs: Temp Pulse Resp BP Pulse Ox 98.1 F 77 16 130/86 H 98 10/24/16 00:41 10/24/16 00:41 10/24/16 00:41 10/24/16 00:41 10/24/16 00:41 Intake & Output 10/23/16 10/24/16 10/25/16 06:59 06:59 06:59 Intake Total 2907 2647 Output Total 4000 2150 Balance -1093 497 Musculoskeletal exam: PRESENT: other - Left lower extremity: Wound VAC intact good seal no evidence of leakage. Intact plantar flexion/dorsiflexion. Dorsalis pedis pulse 2+. Ex-Fix intact pin sites clean/dry/intact Right lower extremity: Swelling of the foot and toes. Intact flexion extension of the toes. No pain with passive stretch. Cap refill less than 2 seconds. Compartments soft and compressible no sign of compartment syndrome. Dorsalis pedis pulse 1+. Decreased sensation along the plantar and medial aspect of the great toe. Results Laboratory Results: 10/24/16 03:53 10/24/16 03:53 WBC 9.9 RBC 3.34 L Hgb 11.1 L Hct 31.3 L MCV 94 MCH 33.3 MCHC 35.5 RDW 12.2 Plt Count 317 Impressions: Abdomen/Pelvis CT 10/17/16 10:22 IMPRESSION: Nothing acute. Cervical Spine CT 10/17/16 10:22 IMPRESSION: Old left paracentral calcified disc protrusion with moderate left foraminal narrowing. No acute fracture or malalignment Chest CT 10/17/16 10:22 IMPRESSION: Nothing acute. Femur X-Ray 10/17/16 10:22 IMPRESSION: No acute fracture identified. Tibia/Fibula X-Ray 10/17/16 10:22 IMPRESSION: 1. Fracture dislocation of the tibiotalar joint. There is a fracture of the tibia most likely the medial malleolus which is displaced toward the at talus on the PA projection. 2. Comminuted fracture of the distal fibula. 3. Nondisplaced proximal right fibular fracture. 4. Comminuted proximal tibial fracture which extends through the articular surface. Lower Extremity CT 10/17/16 11:56 IMPRESSION: Comminuted left proximal tibia fracture extending through the articular surfaces of the medial and lateral tibial plateaus as well as the interspinous region. About 5 mm of depression of the articular surface posterior half of the medial and lateral tibial plateaus is seen on the sagittal reconstruction views. Knee X-Ray 10/18/16 00:00 IMPRESSION: IMAGE(S) OBTAINED DURING PROCEDURE. Ankle X-Ray 10/21/16 00:00 IMPRESSION: IMAGE(S) OBTAINED DURING PROCEDURE. Fluoroscopy 10/21/16 00:00 IMPRESSION: IMAGE(S) OBTAINED DURING PROCEDURE. Assessment & Plan - Diagnosis (1) Closed fracture of left proximal tibia Qualifiers: Encounter type: subsequent encounter Fracture morphology: other fracture Qualified Code(s): S82.192A - Other fracture of upper end of left tibia, initial encounter for closed fracture Is this a current diagnosis for this admission?: YesPlan: Current plan is to proceed with open reduction internal fixation of the patient' s left tibial plateau fracture today by Dr. Magana. Case was discussed with Dr. Magana and patient, risks and benefits have been explained patient verbalized understanding consented. As for the patient's right ankle we will continue nonweightbearing and elevation. (2) Fracture dislocation of ankle Qualifiers: Encounter type: subsequent encounter Fracture type: closed Laterality: right Qualified Code(s): S82.891A - Other fracture of right lower leg, initial encounter for closed fracture Is this a current diagnosis for this admission?: Yes
[2016-10-24] MEDS ORDERED: CEFAZOLIN INJ 1 GM VIAL ONE (09:21)
[2016-10-24] MEDS ORDERED: ALBUTEROL SULFATE 0.083% NEB 2.5 MG/3 ML AMPUL NEB ONE (09:39)
[2016-10-24] MEDS ORDERED: EPHEDRINE SULFATE INJ 50 MG/1 ML AMPULE ONE (09:43)
[2016-10-24] MEDS ORDERED: FENTANYL CITRATE INJ/PF 250 MCG/5 ML AMPULE ONE (09:43)
[2016-10-24] MEDS ORDERED: MIDAZOLAM 2 MG/2 ML INJ ONE ×2 (09:43→10:45)
[2016-10-24] MEDS ORDERED: PROPOFOL INJ 200 MG/20 ML VIAL IV ONE (09:44)
[2016-10-24] MEDS ORDERED: DEXMEDETOMIDINE INJ 80 MCG/20 ML VIAL IV ONE (09:44)
[2016-10-24] MEDS ORDERED: OXYCODONE-ACETAMINOPHEN 5-325 MG TABLET PO PRN ×2 (10:25)
[2016-10-24] MEDS ORDERED: MEPERIDINE HCL/PF INJ 25 MG/1 ML DISP.SYRIN IV PRN (10:25)
[2016-10-24] MEDS ORDERED: FENTANYL CITRATE INJ/PF 100 MCG/2 ML AMPUL IV PRN ×3 (10:25)
[2016-10-24] MEDS ORDERED: DIPHENHYDRAMINE HCL 50 MG/ML VIAL IV PRN (10:25)
[2016-10-24] MEDS ORDERED: MORPHINE SULFATE 10 MG/ML INJ IV PRN (10:25)
[2016-10-24] MEDS ORDERED: PROMETHAZINE HCL INJ 25 MG/1 ML VIAL IV PRN ×2 (10:25)
[2016-10-24] MEDS ORDERED: HYDROMORPHONE HCL INJ/PF 2 MG/ML AMPULE ONE (10:45)
[2016-10-24 11:04] LABS: ANION GAP 13 (5-19); BLOOD UREA NITROGEN 17 mg/dL (7-20); CALCIUM 8.9 mg/dL (8.4-10.2); CARBON DIOXIDE 27 mmol/L (22-30); CHLORIDE 99 mmol/L (98-107); CREATININE RESULT 0.61 mg/dL (0.52-1.25); GLUCOSE 106 mg/dL (75-110); POTASSIUM 5.2 mmol/L (3.6-5.0); SODIUM 138.7 mmol/L (137-145)
--- NOTE | 2016-10-24 12:38 | Operative Report ---
Operative Report DATE OF SURGERY: 10/24/16 PREOPERATIVE DIAGNOSIS: Left Tibial Plateau Fracture POSTOPERATIVE DIAGNOSIS: Same OPERATION: Open reduction internal fixation of left proximal tibia fracture SURGEON: NAVEEN JACOME ANESTHESIA: GA ESTIMATED BLOOD LOSS: 150 PROCEDURE: With the patient supine on the Don table the left lower extremity is prepped and draped in a sterile fashion. There is open medial and lateral fasciotomies. These are extended proximally. Under direct visualization the posterior medial articular fragment is reduced anatomically as held in place with a Skyla titanium posterior medial plate and 2 screws. Subsequently, the lateral incision is his extended proximally and the anterolateral fracture is used to open the book an attempt to reduce the articular impaction. This is done under direct fluoroscopic guidance in 2 planes. Unfortunately, I think that there are so many articular fragments and that they're so small that they are largely floating at the level of the articular surface as opposed to being attached. Absolutely reduction forceps was placed from posterior lateral to anteromedial to reduce the lateral posterior articular fragment. The lateral proximal tibial plate is then placed. Once this is in place. OsteoSet is injected up into the proximal metaphysis an attempt to consolidate the fracture fragments are impacted. The construct and the fracture reduction were again checked fluoroscopically and felt to be acceptable. There continues to be some articular incongruity here but in spite of multiple attempts, I don't think aren't able to improve on what we were able to achieve. At this point the tourniquet was deflated. Hemostasis obtained with electrocautery. The wounds irrigated with pulsed lavage. They're both closed in their entirety using comminution of Vicryl and hailee. A sterile compressive dressing was applied and the patient's returned to PACU in satisfactory condition.
[2016-10-24] MEDS: ENOXAPARIN SODIUM INJ 40 MG/0.4 ML DISP.SYRIN SUBCUT SCH (12:44)
[2016-10-24] MEDS: FENTANYL CITRATE INJ/PF 100 MCG/2 ML AMPUL ONE ×3 (13:00→13:35)
[2016-10-24] MEDS: HYDROMORPHONE HCL INJ/PF 2 MG/ML AMPULE ONE ×3 (13:25→14:05)
[2016-10-24] MEDS ORDERED: ACETAMINOPHEN 100 ML IV ONE (13:25)
[2016-10-24] MEDS: PREGABALIN 75 MG CAPSULE PO SCH ×2 (14:07→17:49)
[2016-10-24] MEDS: OXYCODONE HCL SR 10 MG TABLET PO SCH ×2 (14:07→23:10)
[2016-10-24] MEDS: POLYETHYLENE GLYCOL 3350 POWDER 17 GM/1 PACKET PO SCH (14:07)
[2016-10-24] MEDS ORDERED: KETOROLAC TROMETHAMINE INJ/PF 30 MG/1 ML SDV ONE (14:41)
[2016-10-24] MEDS: DIAZEPAM 2 MG TABLET PO PRN (15:23)
[2016-10-24] MEDS ORDERED: LIDOCAINE 2% INJ-PF (20 MG/ML) 10 ML AMPUL ONE (15:31)
[2016-10-24] MEDS ORDERED: SUCCINYLCHOLINE CHLORIDE INJ 200 MG/10 ML VIAL ONE (15:31)
[2016-10-24] MEDS ORDERED: ONDANSETRON HCL INJ/PF 4 MG/2 ML SDV ONE (15:31)
[2016-10-24] MEDS: CEFAZOLIN 2 GM/D5W RTU 2 GM/50 ML RTUPB IV SCH (17:48)
[2016-10-24] MEDS ORDERED: HYDROMORPHONE HCL INJ/PF 2 MG/ML AMPULE IV ONE (18:45)
[2016-10-24] MEDS: MORPHINE SULFATE 60 MG/60 ML RTUINJ IV PRN (21:37)
[2016-10-24] MEDS: KETOROLAC TROMETHAMINE INJ/PF 30 MG/1 ML SDV IV SCH (23:10)
--- NOTE | 2016-10-25 00:18 | CONSULTATION REPORT E ---
Consultation Report NAME: BRO GONZALEZ : 1980 AGE: 36Y DATE: 10/24/2016 414 A TO: ALICE RUTH PA-C FROM: HUNTER DARLING D.O. Requesting Physician CHIEF COMPLAINT: Left lower extremity pain status post ORIF of left tibial plateau. HISTORY OF PRESENT ILLNESS: The patient fell 12 feet off of a roof on 10/17/2016. He was seen in the ER for fractures of right ankle and left knee. He underwent a right ankle ORIF last week, and an ORIF of left tibial plateau earlier today. There has been some difficulty managing his postoperative pain today. He has had oral oxycodone and IV morphine and Dilaudid, which he states it is only taking the edge off the pain, and he denies any side effects. He states he has constant burning pain in his left knee. He states he is unable to get comfortable or to sleep due to the intense pain in his left knee. PAST MEDICAL HISTORY: 1. Type 2 diabetes. 2. Asthma. 3. Kidney stones. 4. Gastroesophageal reflux disease. 5. PTSD. PAST SURGICAL HISTORY: Appendectomy. ALLERGIES: No known drug allergies. MEDICATIONS: As per chart. Current pain medications include: 1. Oxycodone extended release 20 mg every 12 hours. 2. Oxycodone instant release 5 mg every 4 hours as needed. 3. Dilaudid 2 mg IV every 4 hours as needed. 4. Lyrica 75 mg every 12 hours. SOCIAL HISTORY: He is . Self-employed. He smokes 1 pack per day and drinks socially. He denies illicit drug us. REVIEW OF SYSTEMS: CONSTITUTIONAL: Patient denies fevers, chills, dizziness, weakness, or loss of appetite. SKIN: Denies rashes, bruising, itching. HEENT: Denies visual changes or difficulty hearing. CARDIOVASCULAR: Denies chest pain, edema, or heart palpations. RESPIRATORY: Denies cough or sputum production. GASTROINTESTINAL: Denies nausea, vomiting, diarrhea, abdominal pain, or constipation. URINARY: Denies frequency, dysuria. MUSCULOSKELETAL: As per HPI. NEUROLOGIC: Denies weakness, bowel or bladder incontinence, saddle anesthesia, seizures, tremors, or loss of consciousness. ENDOCRINE: Denies any recent weight changes. Review of systems is otherwise negative. PHYSICAL EXAMINATION: GENERAL: On examination the patient is a pleasant, young white male, who appears stated age and is awake, alert, and oriented to person, place, and time. He does appear to be uncomfortable. He is currently sitting upright in bed and drinking a soda. VITAL SIGNS: Stable. SKIN: Warm and dry. He is not diaphoretic. HEENT: Normocephalic, atraumatic. Extraocular muscles are intact. NECK: Supple, nontender. CARDIOVASCULAR: Radial pulses are 2+ bilaterally. LUNGS: Respirations nonlabored. ABDOMEN: Soft, nontender, nondistended. EXTREMITIES: There is a cast over left lower extremity due to recent surgery. Toes are warm and dry. He is able to move all his toes. NEUROLOGIC: Cranial nerves II-XII are grossly intact. PSYCHE: Patient is alert and oriented to person, place, and time. IMPRESSION AND PLAN: 1. Start BANDER HAND pump as per Dr. Duncan. Hold all short acting p.o. and IV opioids while he is on the BANDER HAND pump. 2. Continue oxycodone E.R. 20 mg every 12 hours. 3. Continue Lyrica 25 every 12 hours; however, we will consider increasing this to every 8 hours. 4. We will plan to discontinue IV pain medications and transition to oral pain medication as soon as possible. Thank you for the consult. We will continue to follow this patient with you. The patient was discussed with Dr. Duncan, who agrees with the above treatment plan. DICTATING PHYSICIAN: ALICE RUTH PA-C [id number] PHY#: [id number] ID: [id number] JOB#: [id number] ACCT: [id number] cc:ALICE RUTH PA-C > MTDD
[2016-10-25] MEDS: CEFAZOLIN 2 GM/D5W RTU 2 GM/50 ML RTUPB IV SCH (01:24)
[2016-10-25] MEDS: LANSOPRAZOLE 30 MG TAB.RAP.DR PO SCH (05:00)
[2016-10-25] MEDS: MORPHINE SULFATE 60 MG/60 ML RTUINJ IV PRN ×2 (05:00→15:14)
[2016-10-25] MEDS: KETOROLAC TROMETHAMINE INJ/PF 30 MG/1 ML SDV IV SCH ×3 (05:02→22:44)
--- NOTE | 2016-10-25 07:04 | PDOC PROGRESS REPORT ---
Subjective Progress Note for:: 10/25/16 Subjective:: Patient complaining of unrelenting pain, tight left lower extremity dressing such that he cannot bend his knee. Physical Exam Vital Signs: Temp Pulse Resp BP Pulse Ox 36.9 C 97 20 147/80 H 97 10/25/16 03:53 10/25/16 03:53 10/25/16 06:00 10/25/16 03:53 10/25/16 06:00 Intake & Output 10/24/16 10/25/16 10/26/16 06:59 06:59 06:59 Intake Total 2647 3800 Output Total 2150 650 Balance 497 3150 General appearance: PRESENT: mild distress Head exam: PRESENT: normocephalic Eye exam: PRESENT: EOMI Respiratory exam: PRESENT: unlabored Cardiovascular exam: PRESENT: RRR Pulses: PRESENT: +1 pedal pulses bilateral Vascular exam: PRESENT: normal capillary refill GI/Abdominal exam: PRESENT: soft Rectal exam: PRESENT: deferred Extremities exam: PRESENT: other - Right posterior splint in place. Left lower extremity compressive dressing in place. Neurovascular examination to the great toe is intact. Neurological exam: PRESENT: alert, awake, oriented to person, oriented to place , oriented to time, oriented to situation. ABSENT: motor sensory deficit Psychiatric exam: PRESENT: anxious Skin exam: PRESENT: dry, intact, warm. ABSENT: cyanosis, rash Results Laboratory Results: 10/24/16 03:53 10/24/16 10:20 10/24/16 10/24/16 10:20 10:20 Sodium 138.7 Potassium 5.2 H Chloride 99 Carbon Dioxide 27 Anion Gap 13 BUN 17 Creatinine 0.61 Est GFR ( Amer) > 60 Est GFR (Non-Af Amer) > 60 Glucose 106 Calcium 8.9 Blood Type A POSITIVE Antibody Screen NEGATIVE Impressions: Abdomen/Pelvis CT 10/17/16 10:22 IMPRESSION: Nothing acute. Cervical Spine CT 10/17/16 10:22 IMPRESSION: Old left paracentral calcified disc protrusion with moderate left foraminal narrowing. No acute fracture or malalignment Chest CT 10/17/16 10:22 IMPRESSION: Nothing acute. Femur X-Ray 10/17/16 10:22 IMPRESSION: No acute fracture identified. Tibia/Fibula X-Ray 10/17/16 10:22 IMPRESSION: 1. Fracture dislocation of the tibiotalar joint. There is a fracture of the tibia most likely the medial malleolus which is displaced toward the at talus on the PA projection. 2. Comminuted fracture of the distal fibula. 3. Nondisplaced proximal right fibular fracture. 4. Comminuted proximal tibial fracture which extends through the articular surface. Lower Extremity CT 10/17/16 11:56 IMPRESSION: Comminuted left proximal tibia fracture extending through the articular surfaces of the medial and lateral tibial plateaus as well as the interspinous region. About 5 mm of depression of the articular surface posterior half of the medial and lateral tibial plateaus is seen on the sagittal reconstruction views. Ankle X-Ray 10/21/16 00:00 IMPRESSION: IMAGE(S) OBTAINED DURING PROCEDURE. Fluoroscopy 10/24/16 00:00 IMPRESSION: As above. Knee X-Ray 10/24/16 00:00 IMPRESSION: Please see combined report for performance of procedure and radiologic supervision and interpretation. Assessment & Plan - Diagnosis (1) Tibial plateau fracture, left Is this a current diagnosis for this admission?: YesPlan: Patient postop day 1 from an open reduction internal fixation of a left tibial plateau fracture with primary closure previous fasciotomy incisions. Other than pain control. The patient seems to doing relatively well. I've reinforce the need for compressive dressing on the left lower extremity to decrease the swelling. The patient's complaints of inadequate analgesia to the pain management service. Older limited because both lower extremities are involved. Tentative plan will be for transfer to a [facility] in [facility] 1 a bed is available. Anticipate taking down the patient's dressing tomorrow for wound inspection - Time Time Spent with patient: 15-24 minutes Anticipated discharge: Other Within: when bed available
[2016-10-25 07:19] LABS: ABSOLUTE EOSINOPHILS # (AUTO) 0.1 10^3/uL (0.0-0.6); ABSOLUTE LYMPHOCYTES (AUTO) 1.2 10^3/uL (0.5-4.7); ABSOLUTE MONOCYTES (AUTO) 1.5 10^3/uL (0.1-1.4); ABSOLUTE NEUT (AUTO) 8.1 10^3/uL (1.7-8.2); BASOPHILS % (AUTO) 0.4 % (0-2); EOSINOPHILS % (AUTO) 0.6 % (0-6); HEMATOCRIT 26.3 % (37.9-51.0); HEMOGLOBIN 9.4 g/dL (13.5-17.0); HGB HCT DIFFERENCE 1.9; LYMPHOCYTES % (AUTO) 10.8 % (13-45); MEAN CORPUSCULAR HEMOGLOBIN 33.4 pg (27.0-33.4); MEAN CORPUSCULAR HGB CONC 35.8 g/dL (32.0-36.0); MEAN CORPUSCULAR VOLUME 93 fl (80-97); RED BLOOD COUNT 2.82 10^6/uL (4.35-5.55); RED CELL DISTRIBUTION WIDTH 11.8 % (11.5-14.0); SEGMENTED NEUTROPHILS % (AUTO) 74.2 % (42-78); WHITE BLOOD COUNT 10.9 10^3/uL (4.0-10.5)
[2016-10-25 07:37] LABS: ANION GAP 17 (5-19); BLOOD UREA NITROGEN 12 mg/dL (7-20); CALCIUM 8.8 mg/dL (8.4-10.2); CARBON DIOXIDE 26 mmol/L (22-30); CHLORIDE 91 mmol/L (98-107); CREATININE RESULT 0.45 mg/dL (0.52-1.25); GLUCOSE 120 mg/dL (75-110)
[2016-10-25 07:47] LABS: POTASSIUM 4.1 mmol/L (3.6-5.0)
[2016-10-25] MEDS: ENOXAPARIN SODIUM INJ 40 MG/0.4 ML DISP.SYRIN SUBCUT SCH (08:35)
[2016-10-25] MEDS: OXYCODONE HCL SR 10 MG TABLET PO SCH ×2 (09:32→22:44)
[2016-10-25] MEDS: PREGABALIN 75 MG CAPSULE PO SCH ×2 (09:33→17:48)
[2016-10-25] MEDS: POLYETHYLENE GLYCOL 3350 POWDER 17 GM/1 PACKET PO SCH (09:33)
[2016-10-25] MEDS: RINGERS SOLUTION,LACTATED 1,000 ML IV PRN (19:58)
--- NOTE | 2016-10-25 22:13 | PROGRESS NOTE E ---
Progress Note NAME: BRO GONZALEZ : 1980 AGE: 36Y DATE: 10/25/2016 ROOM: 414 SUBJECTIVE: Patient states his pain has been much better controlled with the CATH LAB pump. He states he has been able to rest comfortably today. He denies any side effects. He states he has not needed to push the CATH LAB pump for more medications for at least the past hour, as the basal rate is effective. He understands that by tomorrow we will be transitioning away from the CATH LAB pump to oral medications. OBJECTIVE: VITAL SIGNS: Stable. GENERAL: The patient is a 36-year-old white male who appears his stated age and is awake, alert, and oriented to person, place, and time. He does not appear to be in acute distress. He was asleep when I first entered the room, but was easily arousable. SKIN: Warm and dry. No rashes. He is not diaphoretic. HEENT: Normocephalic, atraumatic. Extraocular muscles intact. NECK: Supple and nontender. CARDIOVASCULAR: Radial pulses are 2+ bilaterally. LUNGS: Respirations are nonlabored. EXTREMITIES: Surgical bandages still in place in bilateral lower extremities. Good capillary refill, able to wiggle toes. IMPRESSION AND PLAN: Continue with the CATH LAB pump without changes. The patient states his pain is well-controlled and he has been able to rest today. Continue to hold oxycodone instant release. We will plan to begin transitioning to oral medications tomorrow. DICTATING PHYSICIAN: ALICE RUTH PA-C [id number] PHY#: [id number] ID: [id number] JOB#: [id number] ACCT: [id number] cc: >
[2016-10-26] MEDS: LANSOPRAZOLE 30 MG TAB.RAP.DR PO SCH (06:37)
[2016-10-26] MEDS: KETOROLAC TROMETHAMINE INJ/PF 30 MG/1 ML SDV IV SCH ×2 (06:37→13:27)
[2016-10-26] MEDS: ENOXAPARIN SODIUM INJ 40 MG/0.4 ML DISP.SYRIN SUBCUT SCH (08:32)
--- NOTE | 2016-10-26 08:38 | PDOC PROGRESS REPORT ---
Subjective Progress Note for:: 10/26/16 Subjective:: Patient continues to complain of pain, although this seems to be somewhat better since of basal MANAGER OF ENTERPRISE rate was initiated. Physical Exam Vital Signs: Temp Pulse Resp BP Pulse Ox 36.8 C 92 16 133/72 H 99 10/26/16 00:10 10/26/16 00:10 10/26/16 05:00 10/26/16 00:10 10/26/16 00:10 Intake & Output 10/25/16 10/26/16 10/27/16 06:59 06:59 06:59 Intake Total 4400 2582 Output Total 2250 2300 Balance 2150 282 General appearance: PRESENT: no acute distress Head exam: PRESENT: normocephalic Eye exam: PRESENT: EOMI Respiratory exam: PRESENT: unlabored Cardiovascular exam: PRESENT: RRR Pulses: PRESENT: +1 pedal pulses bilateral GI/Abdominal exam: PRESENT: soft Rectal exam: PRESENT: deferred Extremities exam: PRESENT: other - Left lower extremity dressing is taken down. There is scant serous drainage. There continues be considerable swelling in the soft tissues. Skin edges are well approximated. All skin edges remain viable. Distal neurovascular examinations intact. Neurological exam: PRESENT: alert, awake, oriented to person, oriented to place , oriented to time, oriented to situation, CN II-XII grossly intact. ABSENT: motor sensory deficit Psychiatric exam: PRESENT: appropriate affect, normal mood. ABSENT: homicidal ideation, suicidal ideation Skin exam: PRESENT: dry, intact, warm. ABSENT: cyanosis, rash Results Laboratory Results: 10/25/16 06:07 10/25/16 06:07 Impressions: Abdomen/Pelvis CT 10/17/16 10:22 IMPRESSION: Nothing acute. Cervical Spine CT 10/17/16 10:22 IMPRESSION: Old left paracentral calcified disc protrusion with moderate left foraminal narrowing. No acute fracture or malalignment Chest CT 10/17/16 10:22 IMPRESSION: Nothing acute. Femur X-Ray 10/17/16 10:22 IMPRESSION: No acute fracture identified. Tibia/Fibula X-Ray 10/17/16 10:22 IMPRESSION: 1. Fracture dislocation of the tibiotalar joint. There is a fracture of the tibia most likely the medial malleolus which is displaced toward the at talus on the PA projection. 2. Comminuted fracture of the distal fibula. 3. Nondisplaced proximal right fibular fracture. 4. Comminuted proximal tibial fracture which extends through the articular surface. Lower Extremity CT 10/17/16 11:56 IMPRESSION: Comminuted left proximal tibia fracture extending through the articular surfaces of the medial and lateral tibial plateaus as well as the interspinous region. About 5 mm of depression of the articular surface posterior half of the medial and lateral tibial plateaus is seen on the sagittal reconstruction views. Ankle X-Ray 10/21/16 00:00 IMPRESSION: IMAGE(S) OBTAINED DURING PROCEDURE. Fluoroscopy 10/24/16 00:00 IMPRESSION: As above. Knee X-Ray 10/24/16 00:00 IMPRESSION: Please see combined report for performance of procedure and radiologic supervision and interpretation. Status: Imported from PACS Assessment & Plan - Diagnosis (1) Tibial plateau fracture, left Is this a current diagnosis for this admission?: YesPlan: Patient postop day 2 from open reduction, she'll fixation of a left tibial plateau fracture with an uneventful postoperative course. With any continue on a nonweightbearing functional restriction. Left lower extremity remains elevated on pillows which should help decrease the swelling. Patient to be transferred to a [facility] rehabilitation facility when a bed is available. - Time Time Spent with patient: 15-24 minutes Anticipated discharge: Other Within: when bed available
[2016-10-26] MEDS: POLYETHYLENE GLYCOL 3350 POWDER 17 GM/1 PACKET PO SCH (10:25)
[2016-10-26] MEDS: OXYCODONE HCL SR 10 MG TABLET PO SCH ×2 (10:25→22:15)
[2016-10-26] MEDS: PREGABALIN 75 MG CAPSULE PO SCH ×2 (10:25→18:17)
[2016-10-26] MEDS: MORPHINE SULFATE 60 MG/60 ML RTUINJ IV PRN (15:58)
[2016-10-26] MEDS: OXYCODONE HCL IR 5 MG TABLET PO PRN ×2 (18:46→22:16)
[2016-10-27] MEDS: OXYCODONE HCL IR 5 MG TABLET PO PRN ×5 (04:14→20:49)
[2016-10-27] MEDS: LANSOPRAZOLE 30 MG TAB.RAP.DR PO SCH (05:46)
--- NOTE | 2016-10-27 06:47 | PDOC PROGRESS REPORT ---
Subjective Progress Note for:: 10/27/16 Subjective:: Patient continues to complain of pain, inability to bend and straighten the left knee, swelling in the left lower extremity, and inability to "feel the metal". Physical Exam Vital Signs: Temp Pulse Resp BP Pulse Ox 36.9 C 79 18 130/69 H 99 10/27/16 00:21 10/27/16 00:21 10/27/16 00:21 10/27/16 00:21 10/27/16 00:21 Intake & Output 10/25/16 10/26/16 10/27/16 06:59 06:59 06:59 Intake Total 4400 2582 1080 Output Total 2250 2300 1900 Balance 2150 282 -820 General appearance: PRESENT: mild distress Head exam: PRESENT: normocephalic Eye exam: PRESENT: EOMI Respiratory exam: PRESENT: unlabored Cardiovascular exam: PRESENT: RRR Pulses: PRESENT: +1 pedal pulses bilateral Vascular exam: PRESENT: normal capillary refill GI/Abdominal exam: PRESENT: soft Extremities exam: PRESENT: other - Her scant serous drainage on the left lower extremity dressing. Distal neurovascular examination of the foot and toes are intact. Neurological exam: PRESENT: alert, awake, oriented to person, oriented to place , oriented to time, oriented to situation. ABSENT: motor sensory deficit Results Laboratory Results: 10/25/16 06:07 10/25/16 06:07 Impressions: Abdomen/Pelvis CT 10/17/16 10:22 IMPRESSION: Nothing acute. Cervical Spine CT 10/17/16 10:22 IMPRESSION: Old left paracentral calcified disc protrusion with moderate left foraminal narrowing. No acute fracture or malalignment Chest CT 10/17/16 10:22 IMPRESSION: Nothing acute. Femur X-Ray 10/17/16 10:22 IMPRESSION: No acute fracture identified. Tibia/Fibula X-Ray 10/17/16 10:22 IMPRESSION: 1. Fracture dislocation of the tibiotalar joint. There is a fracture of the tibia most likely the medial malleolus which is displaced toward the at talus on the PA projection. 2. Comminuted fracture of the distal fibula. 3. Nondisplaced proximal right fibular fracture. 4. Comminuted proximal tibial fracture which extends through the articular surface. Lower Extremity CT 10/17/16 11:56 IMPRESSION: Comminuted left proximal tibia fracture extending through the articular surfaces of the medial and lateral tibial plateaus as well as the interspinous region. About 5 mm of depression of the articular surface posterior half of the medial and lateral tibial plateaus is seen on the sagittal reconstruction views. Ankle X-Ray 10/21/16 00:00 IMPRESSION: IMAGE(S) OBTAINED DURING PROCEDURE. Fluoroscopy 10/24/16 00:00 IMPRESSION: As above. Knee X-Ray 10/24/16 00:00 IMPRESSION: Please see combined report for performance of procedure and radiologic supervision and interpretation. Status: Imported from PACS Assessment & Plan - Diagnosis (1) Tibial plateau fracture, left Is this a current diagnosis for this admission?: YesPlan: 36-year-old white male with a right ankle fracture, left tibial plateau fracture , both status post open reduction internal fixation. Patient's now awaiting transfer to a [facility] facility in [place]. He can be discharged once a bed is available. I've initiated physical therapy, begin range of motion of the left knee. - Time Time Spent with patient: 15-24 minutes Anticipated discharge: Other Within: when bed available
[2016-10-27] MEDS: ENOXAPARIN SODIUM INJ 40 MG/0.4 ML DISP.SYRIN SUBCUT SCH (08:19)
--- NOTE | 2016-10-27 09:36 | PROGRESS NOTE E ---
Progress Note NAME: BRO GONZALEZ : 1980 AGE: 36Y DATE: 10/26/2016 ROOM: 414 SUBJECTIVE: The patient states his pain has been well controlled today with the DOOR ASSEMBLER pump. He says he slept very well last night and has been able to rest comfortably today. He states the highest his pain level has reached is 3/5 and the lowest is 1/5. He states his sharp pain is gone and he currently has a constant aching pain in his knee. He has been using ice as relief and keeping his legs elevated today which has been helpful. He states he has not pushed the DOOR ASSEMBLER for more medications very often, he states maybe once an hour , as the basal rate is very effective overall. He is ready to start transitioning away from the DOOR ASSEMBLER pump to oral medications. OBJECTIVE: VITAL SIGNS: Stable. GENERAL: The patient is a 36-year-old white male who is awake, alert and oriented to person, place and time. He is does not appear to be in any acute distress. He was sitting upright in bed when I entered the room. SKIN: Warm and dry. No rashes. He is not diaphoretic. HEENT: Normocephalic, atraumatic. Extraocular movements are intact. He is wearing glasses. NECK: Supple. Nontender. CARDIOVASCULAR: Radial pulses are 2+ bilaterally. Respirations unlabored. EXTREMITIES: Currently has an ice pack on his left knee. IMPRESSION/PLAN: We are going to begin transitioning away from the DOOR ASSEMBLER pump. We are going to discontinue the basal rate on the DOOR ASSEMBLER pump, but continue the DOOR ASSEMBLER dose of 1.5 mg/hr, with a lockout in 10 minutes. We will adjust the 1 hour limit to 9 mg/hr. If the DOOR ASSEMBLER pump is not used overnight, we will discontinue it in the morning. We will start oxycodone instant release 10 mg p.o. q.4 h. as needed. Hold for respiratory depression, sedation, and a pain score of 0. The patient understood this treatment plan and was in agreement. The patient was also discussed with Dr. Duncan. DICTATING PHYSICIAN: ALICE RUTH PA-C [id number] PHY#: [id number] ID: [id number] JOB#: [id number] ACCT: [id number] cc: > [id number]
[2016-10-27] MEDS: OXYCODONE HCL SR 10 MG TABLET PO SCH ×2 (10:27→22:35)
[2016-10-27] MEDS: PREGABALIN 75 MG CAPSULE PO SCH ×2 (10:28→17:05)
[2016-10-27] MEDS: POLYETHYLENE GLYCOL 3350 POWDER 17 GM/1 PACKET PO SCH (10:30)
[2016-10-28] MEDS: LANSOPRAZOLE 30 MG TAB.RAP.DR PO SCH (05:08)
[2016-10-28] MEDS: OXYCODONE HCL IR 5 MG TABLET PO PRN ×4 (05:08→23:27)
--- NOTE | 2016-10-28 06:38 | PDOC PROGRESS REPORT ---
Subjective Progress Note for:: 10/28/16 Subjective:: I missed the pain meds by an hour this morning Physical Exam Vital Signs: Temp Pulse Resp BP Pulse Ox 36.7 C 63 18 117/72 100 10/28/16 03:38 10/28/16 03:38 10/28/16 03:38 10/28/16 03:38 10/28/16 03:38 Intake & Output 10/26/16 10/27/16 10/28/16 06:59 06:59 06:59 Intake Total 2582 1816 904 Output Total 2300 2700 1050 Balance 282 -884 -146 General appearance: PRESENT: no acute distress Head exam: PRESENT: normocephalic Eye exam: PRESENT: EOMI Respiratory exam: PRESENT: unlabored Pulses: PRESENT: +1 pedal pulses bilateral Vascular exam: PRESENT: normal capillary refill Rectal exam: PRESENT: deferred Extremities exam: PRESENT: other - Lower extremity dressings changed today and replaced with upsides. All incisions are clean dry and intact. There continues to be a modest amount of swelling about the left calf. She is intact. Neurological exam: PRESENT: alert, awake, oriented to person, oriented to place , oriented to time, oriented to situation. ABSENT: motor sensory deficit Results Laboratory Results: 10/25/16 06:07 10/25/16 06:07 Impressions: Abdomen/Pelvis CT 10/17/16 10:22 IMPRESSION: Nothing acute. Cervical Spine CT 10/17/16 10:22 IMPRESSION: Old left paracentral calcified disc protrusion with moderate left foraminal narrowing. No acute fracture or malalignment Chest CT 10/17/16 10:22 IMPRESSION: Nothing acute. Femur X-Ray 10/17/16 10:22 IMPRESSION: No acute fracture identified. Tibia/Fibula X-Ray 10/17/16 10:22 IMPRESSION: 1. Fracture dislocation of the tibiotalar joint. There is a fracture of the tibia most likely the medial malleolus which is displaced toward the at talus on the PA projection. 2. Comminuted fracture of the distal fibula. 3. Nondisplaced proximal right fibular fracture. 4. Comminuted proximal tibial fracture which extends through the articular surface. Lower Extremity CT 10/17/16 11:56 IMPRESSION: Comminuted left proximal tibia fracture extending through the articular surfaces of the medial and lateral tibial plateaus as well as the interspinous region. About 5 mm of depression of the articular surface posterior half of the medial and lateral tibial plateaus is seen on the sagittal reconstruction views. Ankle X-Ray 10/21/16 00:00 IMPRESSION: IMAGE(S) OBTAINED DURING PROCEDURE. Fluoroscopy 10/24/16 00:00 IMPRESSION: As above. Knee X-Ray 10/24/16 00:00 IMPRESSION: Please see combined report for performance of procedure and radiologic supervision and interpretation. Status: Imported from PACS Assessment & Plan - Diagnosis (1) Tibial plateau fracture, left Is this a current diagnosis for this admission?: YesPlan: Patient making progress. We've transitioned from VISUAL DISPLAY ASSOCIATE analgesia to oral analgesics with relative success. Physical therapy has been working on left lower extremity range of motion. Discharge planning has been investigating options for the patient. The patient is ready for discharge from an orthopedic standpoint. - Time Time Spent with patient: 15-24 minutes Anticipated discharge: Other Within: when bed available
[2016-10-28] MEDS: OXYCODONE HCL SR 10 MG TABLET PO SCH ×2 (09:07→21:46)
[2016-10-28] MEDS: PREGABALIN 75 MG CAPSULE PO SCH ×2 (09:07→17:53)
[2016-10-28] MEDS: POLYETHYLENE GLYCOL 3350 POWDER 17 GM/1 PACKET PO SCH (09:08)
[2016-10-28] MEDS: ENOXAPARIN SODIUM INJ 40 MG/0.4 ML DISP.SYRIN SUBCUT SCH (12:08)
--- NOTE | 2016-10-28 12:51 | PROGRESS NOTE E ---
Progress Note NAME: BRO GONZALEZ : 1980 AGE: 36Y DATE: 10/27/2016 ROOM: 414 SUBJECTIVE: The patient states his pain has been better controlled and he has not used the FICTION WRITER pump much today at all. He states that OxyContin and oxycodone have been effective for keeping his pain well managed. He states he was able to participate in physical therapy today. He states that he contonues to have constant aching pain in his knee but the sharp stabbing pain is gone. He says he is ready to discontinue the FICTION WRITER pump and only do oral medications. OBJECTIVE: VITAL SIGNS: Stable. GENERAL: The patient is a 36-year-old white male who is awake, alert and oriented to person, place and time. He does not appear to be in any acute distress. He was sitting upright in bed when I entered the room. SKIN: Warm and dry. No rashes. He is not diaphoretic. HEENT: Normocephalic, atraumatic. Extraocular muscles are intact. NECK: Supple, nontender. CARDIOVASCULAR: Radial pulses are 2+ bilaterally. LUNGS: Respirations unlabored. EXTREMITIES: surgical bandages remain. Good capillary refill. IMPRESSION AND PLAN: At this point we are going to discontinue the FICTION WRITER altogether. We will continue the OxyContin 20 mg q.12 h. scheduled and continue oxycodone instant release 10 mg p.o. q.4 h. as needed. Continue to hold for respiratory depression, sedation and pain score of 0. Please call for further pain management. DICTATING PHYSICIAN: ALICE RUTH PA-C [id number] PHY#: [id number] ID: [id number] JOB#: [id number] ACCT: [id number] cc: > MTDD
[2016-10-29] MEDS: OXYCODONE HCL IR 5 MG TABLET PO PRN ×5 (03:26→22:58)
[2016-10-29] MEDS: LANSOPRAZOLE 30 MG TAB.RAP.DR PO SCH (06:05)
[2016-10-29] MEDS: ENOXAPARIN SODIUM INJ 40 MG/0.4 ML DISP.SYRIN SUBCUT SCH (08:17)
[2016-10-29] MEDS: OXYCODONE HCL SR 10 MG TABLET PO SCH ×2 (10:37→21:17)
[2016-10-29] MEDS: PREGABALIN 75 MG CAPSULE PO SCH ×2 (10:37→17:19)
[2016-10-29] MEDS: POLYETHYLENE GLYCOL 3350 POWDER 17 GM/1 PACKET PO SCH (10:38)
[2016-10-30] MEDS: OXYCODONE HCL IR 5 MG TABLET PO PRN ×5 (05:23→23:54)
[2016-10-30] MEDS: LANSOPRAZOLE 30 MG TAB.RAP.DR PO SCH (05:23)
[2016-10-30] MEDS: ENOXAPARIN SODIUM INJ 40 MG/0.4 ML DISP.SYRIN SUBCUT SCH (08:24)
[2016-10-30] MEDS: OXYCODONE HCL SR 10 MG TABLET PO SCH ×2 (09:38→21:50)
[2016-10-30] MEDS: POLYETHYLENE GLYCOL 3350 POWDER 17 GM/1 PACKET PO SCH (09:39)
[2016-10-30] MEDS: PREGABALIN 75 MG CAPSULE PO SCH ×2 (09:39→17:41)
--- NOTE | 2016-10-30 12:35 | PDOC PROGRESS REPORT ---
Subjective Progress Note for:: 10/30/16 Subjective:: Patient seen and evaluated this morning. No issues. Pain is improving. Denies fever chills or sweats. Numbness is also improving bilaterally. Physical Exam Vital Signs: Temp Pulse Resp BP Pulse Ox 98.5 F 70 20 126/70 H 100 10/30/16 07:31 10/30/16 07:31 10/30/16 07:31 10/30/16 07:31 10/30/16 07:31 Intake & Output 10/29/16 10/30/16 10/31/16 06:59 06:59 06:59 Intake Total 804 1964 Output Total 2400 3750 Balance -1596 -886 Weight 95 kg Musculoskeletal exam: PRESENT: other - Left lower extremity: Incisions well approximated healing. No erythema or drainage. Compartments soft and compressible. Intact plantar flexion/dorsiflexion. No sensory deficits dorsalis pedis pulse 2+ Right lower extremity: Incisions well approximated healing. No erythema or drainage. Compartment soft and compressible. Intact plantar flexors dorsiflexion. Dorsalis pedis pulse 2+. Hypoesthesia along the medial aspect of the great toe Results Laboratory Results: 10/25/16 06:07 10/25/16 06:07 Impressions: Abdomen/Pelvis CT 10/17/16 10:22 IMPRESSION: Nothing acute. Cervical Spine CT 10/17/16 10:22 IMPRESSION: Old left paracentral calcified disc protrusion with moderate left foraminal narrowing. No acute fracture or malalignment Chest CT 10/17/16 10:22 IMPRESSION: Nothing acute. Femur X-Ray 10/17/16 10:22 IMPRESSION: No acute fracture identified. Tibia/Fibula X-Ray 10/17/16 10:22 IMPRESSION: 1. Fracture dislocation of the tibiotalar joint. There is a fracture of the tibia most likely the medial malleolus which is displaced toward the at talus on the PA projection. 2. Comminuted fracture of the distal fibula. 3. Nondisplaced proximal right fibular fracture. 4. Comminuted proximal tibial fracture which extends through the articular surface. Lower Extremity CT 10/17/16 11:56 IMPRESSION: Comminuted left proximal tibia fracture extending through the articular surfaces of the medial and lateral tibial plateaus as well as the interspinous region. About 5 mm of depression of the articular surface posterior half of the medial and lateral tibial plateaus is seen on the sagittal reconstruction views. Ankle X-Ray 10/21/16 00:00 IMPRESSION: IMAGE(S) OBTAINED DURING PROCEDURE. Fluoroscopy 10/24/16 00:00 IMPRESSION: As above. Knee X-Ray 10/24/16 00:00 IMPRESSION: Please see combined report for performance of procedure and radiologic supervision and interpretation. Assessment & Plan - Diagnosis (1) Closed fracture of left proximal tibia Qualifiers: Encounter type: subsequent encounter Fracture morphology: other fracture Qualified Code(s): S82.192A - Other fracture of upper end of left tibia, initial encounter for closed fracture Is this a current diagnosis for this admission?: Yes (2) Fracture dislocation of ankle Qualifiers: Encounter type: subsequent encounter Fracture type: closed Laterality: right Qualified Code(s): S82.891A - Other fracture of right lower leg, initial encounter for closed fracture Is this a current diagnosis for this admission?: YesPlan: Patient doing well. Continue nonweightbearing bilateral lower extremities and transfers only. Continuing to wait for group home facility placement.
[2016-10-31] MEDS: OXYCODONE HCL IR 5 MG TABLET PO PRN ×3 (04:35→13:14)
[2016-10-31] MEDS: LANSOPRAZOLE 30 MG TAB.RAP.DR PO SCH (05:28)
[2016-10-31] MEDS: ENOXAPARIN SODIUM INJ 40 MG/0.4 ML DISP.SYRIN SUBCUT SCH (07:54)
[2016-10-31] MEDS: PREGABALIN 75 MG CAPSULE PO SCH (09:32)
[2016-10-31] MEDS: OXYCODONE HCL SR 10 MG TABLET PO SCH (09:32)
[2016-10-31] MEDS: POLYETHYLENE GLYCOL 3350 POWDER 17 GM/1 PACKET PO SCH (09:32)
--- NOTE | 2016-10-31 11:58 | PDOC TRANSFER SUMMARY ---
General - Admit/Disc Date/PCP Admission Date/Primary Care Provider: 10/17/16 13:09 Discharge Date: 10/31/16 - Discharge Diagnosis (1) Tibial plateau fracture, left Is this a current diagnosis for this admission?: Yes (2) Fracture dislocation of ankle Is this a current diagnosis for this admission?: Yes - Additional Information Resuscitation Status: Full Code Discharge Diet: As Tolerated, Regular Discharge Activity: Other - nonweightbearing on either lower extremity Home Medications: Albuterol Sulfate [Proair HFA Inhalation Aerosol 8.5 gm MDI] 2 puff IH Q4HP PRN 10/17/16 Budesonide/Formoterol Fumarate [Symbicort HFA 160-4.5 mcg Inhaler 6 gm] 1 puff IH Q12HP PRN 10/17/16 Montelukast Sodium [Singulair 10 mg Tablet] 10 mg PO DAILYP PRN 10/17/16 History of Present Illness Admission Date/PCP: 10/17/16 13:09 Hospital Course Hospital Course: The patient is a 36-year-old white male who presented to the emergency room status post a 10 foot fall off a roof. As a result of the fall the patient complains of ankle pain and left knee pain. He is unable to bear weight. The emergency room where a left ankle fracture dislocation was identified as well as a left tibial plateau fracture. He is admitted to the orthopedic service for management of his fractures. The patient's taken to the operating room on October 18 undergoes open reduction internal fixation of the right ankle fracture as well as fasciotomies left lower extremity with application of an external fixator. The patient does satisfactory. After this except for issues of pain control. Pain management was consult at for assistance in pain management. The patient then is taken back to the operating room on 10/24/2016 where he undergoes removal of the external fixator, open reduction for fixation of the tibial plateau fracture and closure of the fasciotomy incisions. Our graft. The patient's returned to the floor and Nonweightbearing Activity Restriction. Both Lower Extremities. Pain Management Assists and Pain Control Initially with SENIOR PRODUCT MANAGER Pump and Then Transitioned to Oral Pain Medication. The Patient Has Subsequent Awaited for Rehabilitation Physical Exam Vital Signs: Temp Pulse Resp BP Pulse Ox 36.5 C 82 16 121/64 99 10/31/16 03:10/31/16 03:10/31/16 03:17 10/31/16 03:17 10/31/16 03:17 Intake & Output 10/30/16 10/31/16 11/01/16 06:59 06:59 06:59 Intake Total 1964 1070 Output Total 2440 700 Balance -476 370 General appearance: PRESENT: no acute distress Head exam: PRESENT: normocephalic Eye exam: PRESENT: EOMI Respiratory exam: PRESENT: unlabored Cardiovascular exam: PRESENT: RRR Pulses: PRESENT: +1 pedal pulses bilateral GI/Abdominal exam: PRESENT: soft Rectal exam: PRESENT: deferred Extremities exam: PRESENT: other - Right ankle wounds are staple closed. The clean dry and intact. There is minimal edema. Distal neurovascular examination is intact except the medial surface of the great toe which has a subjective sensory deficit. Left calf wounds are well approximated with hailee. A clean dry and intact. There is modest edema about the calf and ankle. Neurological exam: PRESENT: alert, awake, oriented to person, oriented to place , oriented to time, oriented to situation Skin exam: PRESENT: dry, intact, warm. ABSENT: cyanosis, rash Results Laboratory Results: 10/25/16 06:07 10/25/16 06:07 Impressions: Abdomen/Pelvis CT 10/17/16 10:22 IMPRESSION: Nothing acute. Cervical Spine CT 10/17/16 10:22 IMPRESSION: Old left paracentral calcified disc protrusion with moderate left foraminal narrowing. No acute fracture or malalignment Chest CT 10/17/16 10:22 IMPRESSION: Nothing acute. Femur X-Ray 10/17/16 10:22 IMPRESSION: No acute fracture identified. Tibia/Fibula X-Ray 10/17/16 10:22 IMPRESSION: 1. Fracture dislocation of the tibiotalar joint. There is a fracture of the tibia most likely the medial malleolus which is displaced toward the at talus on the PA projection. 2. Comminuted fracture of the distal fibula. 3. Nondisplaced proximal right fibular fracture. 4. Comminuted proximal tibial fracture which extends through the articular surface. Lower Extremity CT 10/17/16 11:56 IMPRESSION: Comminuted left proximal tibia fracture extending through the articular surfaces of the medial and lateral tibial plateaus as well as the interspinous region. About 5 mm of depression of the articular surface posterior half of the medial and lateral tibial plateaus is seen on the sagittal reconstruction views. Ankle X-Ray 10/21/16 00:00 IMPRESSION: IMAGE(S) OBTAINED DURING PROCEDURE. Fluoroscopy 10/24/16 00:00 IMPRESSION: As above. Knee X-Ray 10/24/16 00:00 IMPRESSION: Please see combined report for performance of procedure and radiologic supervision and interpretation. Status: Imported from PACS Transfer Plan - Disposition Transfer Plan: The patient will be be transferred to rehabilitation. He return to see Dr. lopez at the [facility] for surgery proxy 2 weeks for staple removal - Time Spent with Patient Time spent with patient: Less than 30 Minutes Plan Discharge Plan: Transfer to a rehabilitation facility Time Spent: Less than 30 Minutes
[2016-10-31 14:10] VITALS: BP 130/82
== END 2016-10-31 14:18 | DRG 494 ==
LOC: ER 10:16 → EH 12:22 → UNDOADMIN 12:22 → EH 13:09 → 4N 14:55
PROVIDERS: ADMIT Orthopaedic Surgery; ATTEND Orthopaedic Surgery
PROC: 0SSFXZZ Reposition Right Ankle Joint, External Approach (ICD-10-PCS; 2016-10-17)
PROC: 0KNT0ZZ Release Left Lower Leg Muscle, Open Approach (ICD-10-PCS; 2016-10-18)
PROC: 0QHH34Z Insertion of Internal Fixation Device into Left Tibia, Percutaneous Approach (ICD-10-PCS; 2016-10-18)
PROC: 0QSG04Z Reposition Right Tibia with Internal Fixation Device, Open Approach (ICD-10-PCS; 2016-10-21)
PROC: 0SSF04Z Reposition Right Ankle Joint with Internal Fixation Device, Open Approach (ICD-10-PCS; 2016-10-21)
PROC: 0QSH04Z Reposition Left Tibia with Internal Fixation Device, Open Approach (ICD-10-PCS; principal; 2016-10-24 10:00)
DX: S82.192A Other fracture of upper end of left tibia, initial encounter for closed fracture (principal); S82.841A Displaced bimalleolar fracture of right lower leg, initial encounter for closed fracture; S82.142A Displaced bicondylar fracture of left tibia, initial encounter for closed fracture; S93.491A Sprain of other ligament of right ankle, initial encounter; W13.2XXA Fall from, out of or through roof, initial encounter; Y93.9 Activity, unspecified; Y92.9 Unspecified place or not applicable; Y99.9 Unspecified external cause status; K21.9 Gastro-esophageal reflux disease without esophagitis; F43.10 Post-traumatic stress disorder, unspecified; E11.9 Type 2 diabetes mellitus without complications; J45.909 Unspecified asthma, uncomplicated; Z79.899 Other long term (current) drug therapy; F17.210 Nicotine dependence, cigarettes, uncomplicated; Z87.442 Personal history of urinary calculi
CPT/HCPCS: 01392; 01470; 01830; 36415; 71260; 72125; 73552; 74177; 80048; 82962; 85025; 85027; 86850; 86900; 86901; 99291; C1713; C1769; J0131; J0330; J0690; J1100; J1170; J1650; J1885; J2175; J2250; J2270; J2405; J2550; J2704; J2765; J3010; J3490; J7120; L1830; USED 10/8

== ENCOUNTER 2017-01-24 10:21 | Emergency (ER) | payer OTHER, MEDICAID ==
[2017-01-24] MEDS ORDERED: ONDANSETRON HCL INJ/PF 4 MG/2 ML SDV ONE (10:37)
[2017-01-24 10:42] LABS: ABSOLUTE BASOPHILS # (AUTO) 0.1 10^3/uL (0.0-0.2); ABSOLUTE EOSINOPHILS # (AUTO) 0.2 10^3/uL (0.0-0.6); ABSOLUTE LYMPHOCYTES (AUTO) 2.8 10^3/uL (0.5-4.7); ABSOLUTE MONOCYTES (AUTO) 0.7 10^3/uL (0.1-1.4); BASOPHILS % (AUTO) 0.6 % (0-2); EOSINOPHILS % (AUTO) 1.3 % (0-6); HEMATOCRIT 43.9 % (37.9-51.0); HEMOGLOBIN 14.9 g/dL (13.5-17.0); HGB HCT DIFFERENCE 0.8; LYMPHOCYTES % (AUTO) 18.8 % (13-45); MEAN CORPUSCULAR HEMOGLOBIN 29.7 pg (27.0-33.4); MEAN CORPUSCULAR VOLUME 87 fl (80-97); MONOCYTES % (AUTO) 4.5 % (3-13); RED BLOOD COUNT 5.02 10^6/uL (4.35-5.55); SEGMENTED NEUTROPHILS % (AUTO) 74.8 % (42-78); WHITE BLOOD COUNT 14.8 10^3/uL (4.0-10.5)
[2017-01-24] MEDS ORDERED: NORMAL SALINE 1000 ML 1,000 ML IV ONE ×2 (10:42→12:06)
[2017-01-24] MEDS ORDERED: HYDROMORPHONE HCL INJ/PF 2 MG/ML AMPULE IV ONE (10:48)
--- NOTE | 2017-01-24 11:01 | ER Document Report ---
ED General - General TRAVEL OUTSIDE OF THE [place] IN LAST 30 DAYS: No <NAVEEN LUNDBERG - Last Filed: 01/24/17 13:39> <JUANA WALSH - Last Filed: 01/24/17 14:39> - General Chief Complaint: Abdominal Pain Stated Complaint: RIGHT SIDE ABDOMINAL PAIN Time Seen by Provider: 01/24/17 10:30 - HPI Notes: Patient is a 37yo male who arrived by EMS c/o sharp RLQ pain, R>L testicular pain that began this morning. Pt states the pain is a 10/10 and is most comfortable laying on his right side. He developed associated n/v upon arrival to the ED. Pt states that he also has dysuria with voiding small amounts just recently. He reports normal PO intake prior with normal BM's. He was given 70mcg of Fentanyl 20mins prior to arrival which did not help with his pain. He has a h/o appendectomy and umbilical hernia repair. Denies any recent illness, fever, URI, sore throat, cp, palp, syncope, sob, dyspnea, diarrhea, hematemesis , hematuria, urinary discharge, or rash. He takes tramadol, indomethacin, singulair, and symbicort daily. No med allergies. (NAVEEN LUNDBERG) - Related Data Allergies/Adverse Reactions: No Known Allergies Allergy (Unverified 03/14/14 12:07) Past Medical History - Social History Smoking Status: Former Smoker Family History: DM, Hypertension Pulmonary Medical History: Reports: Hx Asthma Endocrine Medical History: Reports: Hx Diabetes Mellitus Type 2. Denies: Hx Diabetes Mellitus Type 1 Renal/ Medical History: Reports: Hx Kidney Stones GI Medical History: Reports: Hx Gastroesophageal Reflux Disease Psychiatric Medical History: Reports: Hx Post Traumatic Stress Disorder Denies: Hx Depression Past Surgical History: Reports: Hx Appendectomy - Immunizations Immunizations up to date: Yes Hx Diphtheria, Pertussis, Tetanus Vaccination: Yes Hx Pneumococcal Vaccination: 03/31/09 <NAVEEN LUNDBERG - Last Filed: 01/24/17 13:39> Review of Systems <NAVEEN LUNDBERG - Last Filed: 01/24/17 13:39> <JUANA WALSH - Last Filed: 01/24/17 14:39> - Review of Systems Notes: REVIEW OF SYSTEMS: CONSTITUTIONAL : Denies fever, chills, or sweats. Denies recent illness. EENT: Denies eye, ear, throat, or mouth pain or symptoms. Denies nasal or sinus congestion or discharge. Denies throat, tongue, or mouth swelling or difficulty swallowing. CARDIOVASCULAR: Denies chest pain. Denies palpitations or racing or irregular heart beat. Denies ankle edema. RESPIRATORY: Denies cough, cold, or chest congestion. Denies shortness of breath, difficulty breathing, or wheezing. GASTROINTESTINAL: see hpi GENITOURINARY: see hpi MUSCULOSKELETAL: Denies back or neck pain or stiffness. Denies joint pain or swelling. SKIN: Denies rash, lesions or sores. NEUROLOGICAL: Denies confusion or altered mental status. Denies passing out or loss of consciousness. Denies dizziness or lightheadedness. Denies headache. Denies weakness or paralysis or loss of use of either side. Denies problems with gait or speech. Denies sensory loss, numbness, or tingling. ALL OTHER SYSTEMS REVIEWED AND NEGATIVE. Dictation was performed using [employer] voice recognition software (NAVEEN LUNDBERG) Physical Exam <NAVEEN LUNDBERG - Last Filed: 01/24/17 13:39> <JUANA WALSH - Last Filed: 01/24/17 14:39> - Vital signs Vitals: Temp Pulse Resp BP Pulse Ox 97.4 F 49 L 24 H 144/83 H 100 01/24/17 10:35 01/24/17 10:35 01/24/17 10:35 01/24/17 10:35 01/24/17 10:35 Notes: PHYSICAL EXAMINATION: GENERAL: Well-appearing, well-nourished and in no mild distress. Writhing on stretcher. Laying on rt side with dry heaves and scant emesis, not hematemesis. NECK: Normal range of motion, supple without lymphadenopathy. No rigidity/ meningismus. LUNGS: Breath sounds clear to auscultation bilaterally and equal. No wheezes rales or rhonchi. HEART: Regular rate and rhythm without murmurs, rubs, gallops. ABDOMEN: Soft, nondistended abdomen. No guarding, no rebound. No masses appreciated. Normal bowel sounds present. No CVA tenderness bilaterally. + tenderness to the RUQ/RLQ, ?Leon sign. : No erythema, inflammation, ecchymosis, or deformities noted. + tenderness to rt inguinal and rt testicle, ?alignment. Unable to elicit decent cremasteric reflex. Pain did not improve with elevation. No urethral discharge , inguinal lymph, or appreciable hernias noted. Musculoskeletal: FROM to passive/active. Strength 5+/5. Extremities: No cyanosis, clubbing, or edema b/l. Peripheral pulses 2+. Capillary refill less than 3 seconds. PSYCH: Normal mood, normal affect. SKIN: Warm, Dry, normal turgor, no rashes or lesions noted. (NAVEEN LUNDBERG) Course - Laboratory Result Diagrams: 01/24/17 10:30 01/24/17 10:30 <NAVEEN LUNDBERG - Last Filed: 01/24/17 13:39> - Laboratory Result Diagrams: 01/24/17 10:30 01/24/17 10:30 <JUANA WALSH - Last Filed: 01/24/17 14:39> - Re-evaluation Re-evalutation: 01/24/17 12:30 Patient is an afebrile, well-hydrated, 36yo male who presents with a 2mm distal rt ureteral stone based on CT. Neg testicular US. Mild stranding is noted with a mild hydronephrosis/ureter without UTI. Urine dip showed blood, neg leuks/nits. Vitals are otherwise stable. 2L NS given today along with zofran 4mg IV, dilaudid 2mg IV, and toradol 15mg IV throughout his stay. Reviewed case with Dr. Walsh. Low suspicion for any AAA, pyelonephritis, appendicitis, cholecystitis, diverticulitis, obstruction, incarcerated hernia, pancreatitis, testicular torsion, or perforated ulcer. We will plan for discharge with straining urine, zofran, flomax, and oxycodone PRN pain. He is to f/u with Urology in the next week and recheck with PCM in 2-3 days. Return to the ED with any worsening symptoms as reviewed in d/c. Pt in agreement. (NAVEEN LUNDBERG) - Vital Signs Vital signs: Temp Pulse Resp BP Pulse Ox 98.0 F 85 16 115/76 97 01/24/17 13:30 01/24/17 13:30 01/24/17 13:30 01/24/17 13:30 01/24/17 13:30 - Laboratory Laboratory results interpreted by me: 01/24/17 01/24/17 01/24/17 10:30 10:30 10:55 WBC 14.8 H Absolute Neutrophils 11.0 H Carbon Dioxide 17 L Anion Gap 20 H Glucose 143 H ALT 73 H Total Protein 8.6 H Urine Ketones 20 H Urine Blood LARGE H Discharge <NAVEEN LUNDBERG - Last Filed: 01/24/17 13:39> <JUANA WALSH - Last Filed: 01/24/17 14:39> - Discharge Clinical Impression: Ureteral stone with hydronephrosis, Dysuria Abdominal pain Qualifiers: Abdominal location: generalized Qualified Code(s): R10.84 - Generalized abdominal pain Condition: Stable Disposition: HOME, SELF-CARE Additional Instructions: Push fluids Strain urine Tylenol/ibuprofen as needed Take meds as directed Recheck with Urology in the next week. Recheck with PCM in 2-3 days. Return to the ED with any worsening symptoms and/or development of fever, headache, chest pain, palpitations, syncope, shortness of breath, trouble breathing, abdominal pain, n/v/d, gross blood in stool/urine, urinary retention , muscle weakness/paralysis, or other worsening symptoms that are concerning to you. Kidney Stone You are passing or have passed a kidney stone. These stones are usually due to increased calcium or uric acid concentrations in your urine. Stones within the kidney itself are not painful. The pain occurs as the stone leaves the kidney to pass down the long tube, called the ureter, leading to the bladder. If the stone is small, it will usually pass by itself. Most patients can pass the stone at home. You will usually receive medications for pain, nausea or vomiting, and sometimes a medication to assist in passing the kidney stone. However, if the pain is very severe or if vomiting prevents you from taking oral pain medications, you may need to return for further treatment. Drink three or four quarts of fluids per day. You will be given pain medication (if needed) and urine strainers. Strain all your urine to see if the stone passes. If your doctor has asked you to bring the stone in for analysis, return with the stone once it has passed. Return if pain or vomiting become severe, if you develop a high fever, if you are unable to pass your urine, or if other unusual symptoms occur. Oral Narcotic Medication You have been given a prescription for pain control. This medication is a narcotic. It's best taken with food, as nausea can result if taken on an empty stomach. Don't operate machinery or drive within six hours of taking this medication. Do not combine this medicine with alcohol, or with any medication which can cause sedation (such as cold tablets or sleeping pills) unless you get permission from the physician. Narcotics tend to cause constipation. If possible, drink plenty of fluids and eat a diet high in fiber and fruits. Prescriptions: Ondansetron HCl [Zofran 4 mg Tablet] 1 - 2 tab PO Q4H PRN #10 tablet PRN Reason: Oxycodone HCl/Acetaminophen [Oxycodone-Acetaminophen 10-325] 1 each PO QID PRN # 15 tablet PRN Reason: Tamsulosin HCl [Flomax 0.4 mg Cap.sr] 0.4 mg PO DAILY #7 cap.sr.24h Forms: Elevated Blood Pressure
[2017-01-24 11:11] LABS: APPEARANCE,URINE CLEAR; BILIRUBIN,URINE NEGATIVE (NEGATIVE); GLUCOSE, URINE NEGATIVE (NEGATIVE); KETONES,URINE 20 mg/dL (NEGATIVE); LEUKOCYTE ESTERASE,URINE NEGATIVE (NEGATIVE); NITRITE,URINE NEGATIVE (NEGATIVE); PROTEIN,URINE NEGATIVE (NEGATIVE); URINE SPECIFIC GRAVITY 1.015; UROBILINOGEN,URINE NEGATIVE mg/dL (<2.0)
[2017-01-24 11:11] LABS: ALANINE AMINOTRANSFERASE 73 U/L (21-72); ALBUMIN 4.7 g/dL (3.5-5.0); ALKALINE PHOSPHATASE 113 U/L (38-126); ASPARTATE AMINO TRANSFERASE 40 U/L (17-59); BILIRUBIN,DIRECT 0.3 mg/dL (0.0-0.4); BILIRUBIN,TOTAL 0.4 mg/dL (0.2-1.3); BLOOD UREA NITROGEN 18 mg/dL (7-20); CALCIUM 10.1 mg/dL (8.4-10.2); CREATININE RESULT 0.75 mg/dL (0.52-1.25); GLUCOSE 143 mg/dL (75-110); LIPASE 129.2 U/L (23-300); POTASSIUM 4.6 mmol/L (3.6-5.0); SODIUM 141.1 mmol/L (137-145); TOTAL PROTEIN 8.6 g/dL (6.3-8.2)
[2017-01-24 11:23] LABS: CARBON DIOXIDE 17 mmol/L (22-30); CHLORIDE 104 mmol/L (98-107)
[2017-01-24 11:24] LABS: ANION GAP 20 (5-19)
--- NOTE | 2017-01-24 11:54 | RADIOLOGY REPORT (SQ) ---
EXAM DESCRIPTION: U/S SCROTUM W/DOPPLER COMPLETED DATE/TIME: 01/24/2017 11:39 am REASON FOR STUDY: testicular pain, RLQ pain COMPARISON: CT ABDOMEN PELVIS 10/17/2016, 01/24/2017 TECHNIQUE: Static and realtime conner scale imaging of the scrotum and testes. Selected color Doppler and spectral images recorded to document blood flow. LIMITATIONS: None. FINDINGS: RIGHT: TESTICLE: Normal size. Normal echotexture. Normal blood flow. No mass. EPIDIDYMIS: Normal. HYDROCELE OR VARICOCELE: No. HERNIA OR EXTRA-TESTICULAR MASS: No. OTHER: No other significant finding. LEFT: TESTICLE: Normal size. Normal echotexture. Normal blood flow. No mass. EPIDIDYMIS: Normal. HYDROCELE OR VARICOCELE: No. HERNIA OR EXTRA-TESTICULAR MASS: No. OTHER: No other significant finding. IMPRESSION: NORMAL SCROTAL ULTRASOUND. NO EVIDENCE OF TESTICULAR MASS OR TORSION. TECHNICAL DOCUMENTATION: JOB ID: [id number] 1944 [employer]- All Rights Reserved
[2017-01-24] MEDS ORDERED: KETOROLAC TROMETHAMINE INJ/PF 30 MG/1 ML SDV IV ONE (11:56)
--- NOTE | 2017-01-24 11:58 | RADIOLOGY REPORT (SQ) ---
EXAM DESCRIPTION: CT LTD RENAL STONE PROTOCOL ON COMPLETED DATE/TIME: 01/24/2017 11:34 am REASON FOR STUDY: abdominal pain/testicular pain COMPARISON: None. TECHNIQUE: CT scan of the abdomen and pelvis performed without intravenous or oral contrast. Images reviewed with lung, soft tissue, and bone windows. Reconstructed coronal and sagittal MPR images revi ewed. All images stored on PACS. All CT scanners at this facility use dose modulation, iterative reconstruction, and/or weight based d osing when appropriate to reduce radiation dose to as low as reasonably achievable (ALARA). [facility]: Dose Right [facility]: CareDose [facility]: Dose Right [facility]: Teradose 4D [facility]: Smart [employer] RADIATION DOSE: Up-to-date CT equipment and radiation dose reduction techniques were employed. CTDIv ol: 23.7 mGy. DLP: 1407 mGy-cm.mGy. LIMITATIONS: None. FINDINGS: On the right side, there is perinephric stranding, and mild right hydronephrosis and hydro ureter down to the level of the ureterovesical junction. At this point, a 2 mm calculus is present a t the ureteral orifice into the bladder best shown on axial image 80 and coronal image 62. Elsewhere in the right kidney, multiple less than 2 mm intrarenal nonobstructive stones are present. No right renal masses or cysts. LOWER CHEST: No significant findings. No nodules or infiltrates. Small hiatal hernia NON-CONTRASTED LIVER, SPLEEN, ADRENALS: Evaluation limited by lack of IV contrast. No identified sign ificant masses. Fatty infiltration of the liver. PANCREAS: No masses. No peripancreatic inflammatory changes. GALLBLADDER: No identified stones by CT criteria. No inflammatory changes to suggest cholecystitis. RIGHT KIDNEY AND URETER: As above LEFT KIDNEY AND URETER: No suspicious masses. Assessment limited by lack of IV contrast. Multiple t iny less than 2 mm intrarenal nonobstructive calculi are present in the left kidney. No left uretera l stones. No hydronephrosis or hydroureter. AORTA AND RETROPERITONEUM: No aneurysm. No retroperitoneal masses or adenopathy. BOWEL AND PERITONEAL CAVITY: No obvious masses or inflammatory changes. No free fluid. Few descendin g and sigmoid colon diverticuli. APPENDIX: Surgically absent. PELVIS, BLADDER, AND ABDOMINAL WALL:No abnormal masses. No free fluid. 2 mm calculus at the right ur eteral orifice into the bladder. Small fat containing bilateral inguinal hernias BONES: No significant findings. OTHER: No other significant finding. IMPRESSION: 2 mm distal right ureteral stone with mild to moderate right hydronephrosis hydroureter and perinephric stranding. Multiple left-sided intrarenal nonobstructive calculi. Fatty liver Post appendectomy TECHNICAL DOCUMENTATION: JOB ID: [id number] Quality ID # [id number]: Final reports with documentation of one or more dose reduction techniques (e.g., Au tomated exposure control, adjustment of the mA and/or kV according to patient size, use of iterative reconstruction technique) 2010 [employer]- All Rights Reserved
[2017-01-24] MEDS ORDERED: CEFTRIAXONE INJ 1000 MG VIAL IM ONE (12:07)
[2017-01-24] MEDS ORDERED: OXYCODONE HCL IR 5 MG TABLET PO ONE (12:46)
[2017-01-24 13:35] VITALS: BP 115/76
== END 2017-01-24 13:35 | disposition home or self-care (01) ==
LOC: ER 10:21
DX: N13.2 Hydronephrosis with renal and ureteral calculous obstruction (principal); R30.0 Dysuria; R10.84 Generalized abdominal pain; R10.31 Right lower quadrant pain; F43.10 Post-traumatic stress disorder, unspecified; N50.812 Left testicular pain; N50.811 Right testicular pain
CPT/HCPCS: 99284; 96361; 96374; 96375; 36415; 83690; 85025; 80053; 81001; 76870; 93976; 76380; J1885; J1170; J2405; J7030

== ENCOUNTER 2017-02-17 05:14 | Day surgery (SDC) | payer MEDICAID, OTHER ==
[2017-02-10 09:53] LABS: ABSOLUTE BASOPHILS # (AUTO) 0.1 10^3/uL (0.0-0.2); ABSOLUTE EOSINOPHILS # (AUTO) 0.3 10^3/uL (0.0-0.6); ABSOLUTE LYMPHOCYTES (AUTO) 2.2 10^3/uL (0.5-4.7); ABSOLUTE MONOCYTES (AUTO) 0.6 10^3/uL (0.1-1.4); ABSOLUTE NEUT (AUTO) 3.8 10^3/uL (1.7-8.2); EOSINOPHILS % (AUTO) 3.9 % (0-6); HEMATOCRIT 43.3 % (37.9-51.0); HEMOGLOBIN 14.5 g/dL (13.5-17.0); HGB HCT DIFFERENCE 0.2; LYMPHOCYTES % (AUTO) 31.7 % (13-45); MEAN CORPUSCULAR HEMOGLOBIN 29.7 pg (27.0-33.4); MEAN CORPUSCULAR HGB CONC 33.5 g/dL (32.0-36.0); MEAN CORPUSCULAR VOLUME 89 fl (80-97); MONOCYTES % (AUTO) 8.5 % (3-13); RED CELL DISTRIBUTION WIDTH 14.6 % (11.5-14.0); SEGMENTED NEUTROPHILS % (AUTO) 54.9 % (42-78); WHITE BLOOD COUNT 6.9 10^3/uL (4.0-10.5)
[2017-02-10 09:56] LABS: APPEARANCE,URINE CLEAR; BILIRUBIN,URINE NEGATIVE (NEGATIVE); GLUCOSE, URINE NEGATIVE (NEGATIVE); KETONES,URINE NEGATIVE (NEGATIVE); LEUKOCYTE ESTERASE,URINE NEGATIVE (NEGATIVE); NITRITE,URINE NEGATIVE (NEGATIVE); PROTEIN,URINE NEGATIVE (NEGATIVE); URINE SPECIFIC GRAVITY 1.017; UROBILINOGEN,URINE NEGATIVE mg/dL (<2.0)
[2017-02-10 10:27] LABS: ANION GAP 17 (5-19); BLOOD UREA NITROGEN 14 mg/dL (7-20); CALCIUM 9.5 mg/dL (8.4-10.2); CARBON DIOXIDE 23 mmol/L (22-30); CHLORIDE 101 mmol/L (98-107); CREATININE RESULT 0.59 mg/dL (0.52-1.25); GLUCOSE 101 mg/dL (75-110); POTASSIUM 4.6 mmol/L (3.6-5.0); SODIUM 141.3 mmol/L (137-145)
--- NOTE | 2017-02-10 10:51 | RADIOLOGY REPORT (SQ) ---
EXAM DESCRIPTION: CHEST PA/LATERAL COMPLETED DATE/TIME: 02/10/2017 10:40 am REASON FOR STUDY: PRE OP COMPARISON: None. EXAM PARAMETERS: NUMBER OF VIEWS: two views TECHNIQUE: Digital Frontal and Lateral radiographic views of the chest acquired. RADIATION DOSE: NA LIMITATIONS: none FINDINGS: LUNGS AND PLEURA: There is linear scarring or atelectasis in the right middle lobe. No co nsolidation or pleural effusions. MEDIASTINUM AND HILAR STRUCTURES: No masses or contour abnormalities. HEART AND VASCULAR STRUCTURES: Heart normal size. No evidence for failure. BONES: No acute findings. HARDWARE: None in the chest. OTHER: No other significant finding. IMPRESSION: Probable atelectasis in the right middle lobe. No other significant findings. TECHNICAL DOCUMENTATION: JOB ID: [id number] [employer]- All Rights Reserved
--- NOTE | 2017-02-10 20:19 | EKG REPORT ---
SEVERITY:- NORMAL ECG - SINUS RHYTHM : Confirmed by: Grady Moran MD 10-Feb-2017 20:18:08
[~2017-02-17 05:14] MED LIST: CEFAZOLIN 2 GM/D5W RTU 2 GM/50 ML RTUPB IV PRN; CEFAZOLIN SODIUM 2 GM in DEXTROSE 5%-WATER 100 ML IV PRN; LACTATED RINGERS 1000 ML IV PRN; LIDOCAINE 0.5% INJ-PF (5 MG/ML) 50 ML SDV SUBCUT PRN
[2017-02-17] MEDS ORDERED: BUPIVACAINE HCL 0.5 % INJ/PF 30 ML SDV ONE (06:09)
[2017-02-17] MEDS ORDERED: DIAZEPAM 5 MG TABLET ONE (06:17)
[2017-02-17] MEDS ORDERED: FAMOTIDINE INJ/PF 20 MG/2 ML SDV IV ONE ×2 (06:20→06:45)
[2017-02-17] MEDS ORDERED: DIAZEPAM 5 MG TABLET PO ONE (06:30)
[2017-02-17] MEDS ORDERED: FENTANYL CITRATE INJ/PF 100 MCG/2 ML AMPUL ONE (07:03)
[2017-02-17] MEDS ORDERED: MIDAZOLAM 2 MG/2 ML INJ ONE (07:03)
[2017-02-17] MEDS ORDERED: EPHEDRINE SULFATE INJ 50 MG/1 ML AMPULE ONE (07:04)
[2017-02-17] MEDS ORDERED: PROPOFOL INJ 200 MG/20 ML VIAL IV ONE (07:04)
[2017-02-17] MEDS ORDERED: HYDROMORPHONE HCL INJ/PF 2 MG/ML AMPULE ONE (07:04)
[2017-02-17] MEDS ORDERED: MEPERIDINE HCL/PF INJ 25 MG/1 ML DISP.SYRIN IV PRN (07:38)
[2017-02-17] MEDS ORDERED: DIPHENHYDRAMINE HCL 50 MG/ML VIAL IV PRN (07:38)
[2017-02-17] MEDS ORDERED: ONDANSETRON HCL INJ/PF 4 MG/2 ML SDV IV PRN ×2 (07:38→07:57)
[2017-02-17] MEDS ORDERED: FENTANYL CITRATE INJ/PF 100 MCG/2 ML AMPUL IV PRN ×3 (07:38)
[2017-02-17] MEDS ORDERED: OXYCODONE-ACETAMINOPHEN 5-325 MG TABLET PO PRN (07:57)
--- NOTE | 2017-02-17 07:57 | PDOC DISCHARGE SUMMARY ---
Discharge Summary (SDC) - Discharge Final Diagnosis: Right Ankle Fracture Dislocation w/ Syndesmotic Disruption S/p ORIF Date of Surgery: 02/17/17 Discharge Date: 02/17/17 Condition: Good Treatment or Instructions: Schedule Follow Up w/ Dr. Alec Vazquez @ [facility] for Surgery to be seen in 10-14 days or as scheduled [place]: [place]: [place]: May remove dressing on postop day #3, keep incision covered and dry. Ice and elevate Weight-bear as tolerated. Stool softener of choice when on pain medication. Prescriptions: Oxycodone HCl/Acetaminophen [Percocet 5-325 mg Tablet] 1 - 2 tab PO ASDIR PRN # 20 tablet PRN Reason: Discharge Diet: As Tolerated Respiratory Treatments at Home: Deep Breathing/Coughing Discharge Activity: No Lifting Over 10 Pounds, No Lifting/Push/Pulling Report the Following to Your Physician Immediately: Fever over 101 Degrees, Unusual Bleeding, Redness, Swelling, Warmth, Increased Soreness
--- NOTE | 2017-02-17 08:01 | Operative Report ---
Operative Report DATE OF SURGERY: 02/17/17 PREOPERATIVE DIAGNOSIS: Right Ankle Fracture Dislocation w/ Syndesmotic Disruption S/p ORIF POSTOPERATIVE DIAGNOSIS: Same + retained syndesmotic screw OPERATION: Removal Syndesmotic Screw w/ Insertion Locking Screw Right Ankle SURGEON: HUNTER DARLING ANESTHESIA: GA COMPLICATIONS: None ESTIMATED BLOOD LOSS: Minimal PROCEDURE: Indication for above procedure: 36-year-old male who sustained a bilateral lower extremity injury including compartment syndrome of his left leg and comminuted tibial plateau fracture and right ankle fracture dislocation he underwent emergent fasciotomy and external fixation of his left lower extremity and ultimately fixation of the right ankle by myself. Patient had a syndesmotic screw placed he followed up with me which will be discussed treatment options given the amount of time the decision was made to proceed with syndesmotic screw removal. Procedure In Detail: Patient was seen and evaluated in the preoperative holding area. The RIGHT lower extremity was initialized and marked. Patient received 2g of Ancef IV for bacterial prophylaxis. Patient was taken back to the operative room where transferred to the operative table and placed under general anesthesia. Once they were adequately anesthetized a nonsterile tourniquet was placed on the lower extremity. A surgical team debriefing was performed ensuring all instrumentation was available, the surgical procedure was discussed with possible concerns reviewed. The lower extremity was prepped with ChloraPrep and draped in a sterile fashion. A timeout was done identifying correct patient, procedure and extremity everyone in attendance agree with this and verbalized no concerns. The extremity was exsanguinated the tourniquet was inflated to 300 mmHg. C-arm fluoroscopy was utilized to isolate the syndesmotic screw. Small longitudinal skin incision was made. Blunt dissection was performed down to the 4.5 millimeter screw which was removed in its entirety. The insertion point was curetted. The area was then irrigated with normal saline. Given the fact continues to demonstrate lack of complete healing at the fibular fracture I placed a locking screw to provide further stability. The wound was then copiously irrigated with normal saline. C-arm fluoroscopy was obtained demonstrating successful removal of the syndesmotic screw with appropriate length of the locking screw. There is no evidence of tibia-fibula clear space widening. Skin was closed with interrupted subcuticular 3-0 Monocryl suture reinforced with Dermabond and Steri-Strips. 10 cc of 0.5% Marcaine with epinephrine was injected for postoperative pain control. Wound was dressed with a soft dressing tourniquet deflated. Sponge counts, instrument counts, needle counts counts were correct. Patient was then awoken from anesthesia. Transferred from the operating room table to the operating room stretcher. There was no intraoperative complications patient tolerated procedure well stable to PACU. Postoperative plan: Patient brought in the office in 2 weeks for wound check. He will begin weightbearing as tolerated immediately.
--- NOTE | 2017-02-17 08:28 | RADIOLOGY REPORT (SQ) ---
EXAM DESCRIPTION: ANKLE RIGHT AP/LATERAL COMPLETED DATE/TIME: 02/17/2017 8:19 am REASON FOR STUDY: HARDWARE REMOVAL RT ANKLE ASSISTED WITH C ARM IN OR M25.571 PAIN IN RIGHT ANKLE A ND JOINTS OF RIGHT FOOT COMPARISON: None. FLUOROSCOPY TIME: 0 minutes 2 images saved to PACS. TECHNIQUE: Intra-operative images acquired during surgical procedure to evaluate progress. NUMBER OF IMAGES: 2 image LIMITATIONS: None. FINDINGS: Images of the right ankle were obtained demonstrating orthopedic hardware in place IMPRESSION: IMAGE(S) OBTAINED DURING PROCEDURE. COMMENT: Quality ID 145: Final reports for procedures using fluoroscopy that document radiation exp osure indices, or exposure time and number of fluorographic images (if radiation exposure indices are not available) Please consult full operative report of the attending physician for description of the procedure. TECHNICAL DOCUMENTATION: JOB ID: [id number] [employer]- All Rights Reserved
--- NOTE | 2017-02-17 08:28 | RADIOLOGY REPORT (SQ) ---
EXAM DESCRIPTION: NO CHG FLUORO COMPLETE DATE/TIME: 02/17/2017 8:19 am REASON FOR STUDY: HARDWARE REMOVAL RT ANKLE ASSISTED WITH C ARM IN OR M25.571 PAIN IN RIGHT ANKLE A ND JOINTS OF RIGHT FOOT FINDINGS: Please see combined report for performance of procedure and radiologic supervision and int erpretation. IMPRESSION: Please see combined report for performance of procedure and radiologic supervision and i nterpretation.
[2017-02-17 09:53] VITALS: BP 130/86
[2017-02-17] MEDS ORDERED: DEXAMETHASONE SOD PHOSPHATE INJ 4 MG/1 ML VIAL ONE (10:14)
[2017-02-17] MEDS ORDERED: LIDOCAINE 2% INJ-PF (20 MG/ML) 10 ML AMPUL ONE (10:14)
[2017-02-17] MEDS ORDERED: ONDANSETRON HCL INJ/PF 4 MG/2 ML SDV ONE (10:14)
== END 2017-02-17 10:05 | disposition home or self-care (01) ==
LOC: OROUT 05:14
PROVIDERS: ATTEND Orthopaedic Surgery
PROC: 0QHJ04Z Insertion of Internal Fixation Device into Right Fibula, Open Approach (ICD-10-PCS; 2017-02-17)
PROC: 0SPG04Z Removal of Internal Fixation Device from Left Ankle Joint, Open Approach (ICD-10-PCS; principal; 2017-02-17 07:15)
DX: M25.571 Pain in right ankle and joints of right foot (principal); J45.909 Unspecified asthma, uncomplicated; M10.9 Gout, unspecified; E11.9 Type 2 diabetes mellitus without complications; Z87.891 Personal history of nicotine dependence; Z79.51 Long term (current) use of inhaled steroids; Z79.899 Other long term (current) drug therapy
CPT/HCPCS: 93005; 36415; 82962; 85025; 80048; 81001; 73600; 71020; 93010; 20680; 27899; C1713; J2250; J0690; J1100; J3490 ×2; J1170; J2405; J2704; S0028; 01480; J3010

== ENCOUNTER 2017-08-04 17:33 | Observation (INO) | payer MEDICAID ==
--- NOTE | 2017-08-04 19:52 | ER Document Report ---
ED GI/ - General Chief Complaint: Nausea/Vomiting/Diarrhea Stated Complaint: NAUSEA Time Seen by Provider: 08/04/17 19:51 Notes: The patient is a 37-year-old male, past medical history GERD (no longer on PPIs) , presents with 5 days of epigastric pain, nausea, vomiting and watery diarrhea. He said it started after he ate an undercooked chicken breast from [facility] on [place]. Patient is concerned he has salmonella. His diarrhea has resolved yesterday, but he is still feeling nauseous and vomiting. He denies fevers, blood in the stool, urinary symptoms, hematemesis, abdominal distention or rash. TRAVEL OUTSIDE OF THE [place] IN LAST 30 DAYS: No - Related Data Allergies/Adverse Reactions: No Known Allergies Allergy (Unverified 08/04/17 17:43) Past Medical History - General Information source: Patient - Social History Smoking Status: Unknown if Ever Smoked Family History: DM, Hypertension - Past Medical History Cardiac Medical History: Denies: Hx Coronary Artery Disease, Hx Heart Attack, Hx Hypertension Pulmonary Medical History: Reports: Hx Asthma Denies: Hx Bronchitis, Hx COPD, Hx Pneumonia Neurological Medical History: Denies: Hx Cerebrovascular Accident, Hx Seizures Endocrine Medical History: Reports: Hx Diabetes Mellitus Type 2. Denies: Hx Diabetes Mellitus Type 1 Renal/ Medical History: Reports: Hx Kidney Stones GI Medical History: Reports: Hx Gastroesophageal Reflux Disease Musculoskeltal Medical History: Denies Hx Arthritis - GOUT Psychiatric Medical History: Reports: Hx Post Traumatic Stress Disorder Denies: Hx Depression Past Surgical History: Reports: Hx Appendectomy - Immunizations Immunizations up to date: Yes Hx Diphtheria, Pertussis, Tetanus Vaccination: Yes Hx Pneumococcal Vaccination: 03/31/09 Review of Systems - Review of Systems Notes: REVIEW OF SYSTEMS: CONSTITUTIONAL: -fevers, -chills EENT: -eye pain, -difficulty swallowing, -nasal congestion CARDIOVASCULAR: -chest pain, -syncope. RESPIRATORY: -cough, -SOB GASTROINTESTINAL: +epigastric abdominal pain, +nausea, +vomiting, +diarrhea GENITOURINARY: -dysuria, -hematuria MUSCULOSKELETAL: -back pain, -neck pain SKIN: -rash or skin lesions. HEMATOLOGIC: -easy bruising or bleeding. LYMPHATIC: -swollen, enlarged glands. NEUROLOGICAL: -altered mental status or loss of consciousness, -headache, - neurologic symptoms PSYCHIATRIC: -anxiety, -depression. ALL OTHER SYSTEMS REVIEWED AND NEGATIVE. Physical Exam - Vital signs Vitals: Temp Pulse Resp BP Pulse Ox 99.2 F 84 20 147/87 H 96 08/04/17 17:49 08/04/17 17:49 08/04/17 17:49 08/04/17 17:49 08/04/17 17:49 - Notes Notes: PHYSICAL EXAMINATION: GENERAL: Uncomfortable. HEAD: Atraumatic, normocephalic. EYES: Pupils equal round and reactive to light, extraocular movements intact, sclera anicteric, conjunctiva are normal. ENT: nares patent, oropharynx clear without exudates. Moist mucous membranes. NECK: Normal range of motion, supple without lymphadenopathy LUNGS: Breath sounds clear to auscultation bilaterally and equal. No wheezes rales or rhonchi. HEART: Regular rate and rhythm without murmurs ABDOMEN: Soft, moderate RUQ and LUQ tenderness, normoactive bowel sounds. No guarding, no rebound. No masses appreciated. EXTREMITIES: Normal range of motion, no pitting or edema. No cyanosis. NEUROLOGICAL: Cranial nerves grossly intact. Normal speech, normal gait. Normal sensory and motor exams. PSYCH: Normal mood, normal affect. SKIN: Warm, Dry, normal turgor, no rashes or lesions noted. Course - Re-evaluation Re-evalutation: Patient with 4 days of upper abdominal pain with nausea and vomiting. Is no longer having any diarrhea and never had any hematochezia. He has evidence of pancreatitis with a severely elevated lipase. Says that he does not drink alcohol regularly, has no history of gallstones and does not think that he has high triglycerides. His LFTs are also elevated. With the recent nausea, vomiting and diarrhea from undercooked chicken, this may be a foodborne hepatitis, but hepatitis panel sent. Ultrasound does not show any acute abnormalities with his gallbladder and CT does not show any masses or pseudocyst of his pancreas. His primary care physician is Dr. Luigi Bryan. Patient requires inpatient admission for further evaluation and treatment of his acute pancreatitis and elevated LFTs. 08/05/17 00:[address] Middleton and he will be down to see patient. Pt continues to have pain when he is eating ice chips. Nausea has improved. - Vital Signs Vital signs: Temp Pulse Resp BP Pulse Ox 97.6 F 84 20 147/87 H 96 08/04/17 23:20 08/04/17 17:49 08/04/17 17:49 08/04/17 17:49 08/04/17 17:49 - Laboratory Result Diagrams: 08/04/17 20:04 08/04/17 20:04 Laboratory results interpreted by me: 08/04/17 08/04/17 08/04/17 20:04 20:04 20:04 Eosinophils % 6.8 H Absolute Eosinophils 0.7 H Sodium 146.9 H AST 125 H ALT 242 H Alkaline Phosphatase 193 H Triglycerides 344 H Lipase 7849.9 H - Diagnostic Test Radiology reviewed: Image reviewed, Reports reviewed Radiology results interpreted by : SHANNAN US: NAD CT A/P: small colonic diverticulum, NAD Discharge - Discharge Clinical Impression: Acute pancreatitis Qualifiers: Pancreatitis type: unspecified pancreatitis type Acute pancreatitis complication: unspecified Qualified Code(s): K85.90 - Acute pancreatitis without necrosis or infection, unspecified Condition: Stable Disposition: ADMITTED INPATIENT Admitting Provider: [facility] Unit Admitted: Medical Floor
[2017-08-04] MEDS ORDERED: MAG HYDROX/AL HYDROX/SIMETH SUSP 30 ML UDCUP PO ONE (20:05)
[2017-08-04] MEDS ORDERED: LIDOCAINE 2% VISCOUS SOLN 20 ML UDCUP PO ONE (20:05)
[2017-08-04] MEDS ORDERED: METOCLOPRAMIDE HCL ORAL SOLN 10 MG/10 ML UDCUP PO ONE (20:05)
[2017-08-04 20:59] LABS: ABSOLUTE BASOPHILS # (AUTO) 0.1 10^3/uL (0.0-0.2); ABSOLUTE EOSINOPHILS # (AUTO) 0.7 10^3/uL (0.0-0.6); ABSOLUTE LYMPHOCYTES (AUTO) 2.7 10^3/uL (0.5-4.7); ABSOLUTE MONOCYTES (AUTO) 0.9 10^3/uL (0.1-1.4); ABSOLUTE NEUT (AUTO) 6.1 10^3/uL (1.7-8.2); EOSINOPHILS % (AUTO) 6.8 % (0-6); HEMATOCRIT 41.3 % (37.9-51.0); HEMOGLOBIN 14.5 g/dL (13.5-17.0); LYMPHOCYTES % (AUTO) 25.3 % (13-45); MEAN CORPUSCULAR HEMOGLOBIN 32.4 pg (27.0-33.4); MEAN CORPUSCULAR HGB CONC 35.2 g/dL (32.0-36.0); MEAN CORPUSCULAR VOLUME 92 fl (80-97); MONOCYTES % (AUTO) 8.9 % (3-13); PLATELET COUNT 375 10^3/uL (150-450); RED BLOOD COUNT 4.49 10^6/uL (4.35-5.55); RED CELL DISTRIBUTION WIDTH 13.1 % (11.5-14.0); TOTAL CELLS COUNTED % (AUTO) 100 %; WHITE BLOOD COUNT 10.5 10^3/uL (4.0-10.5)
[2017-08-04 21:11] LABS: ALANINE AMINOTRANSFERASE 242 U/L (21-72); ALBUMIN 4.5 g/dL (3.5-5.0); ALKALINE PHOSPHATASE 193 U/L (38-126); ANION GAP 16 (5-19); ASPARTATE AMINO TRANSFERASE 125 U/L (17-59); BILIRUBIN,DIRECT 0.3 mg/dL (0.0-0.4); BILIRUBIN,TOTAL 0.4 mg/dL (0.2-1.3); BLOOD UREA NITROGEN 9 mg/dL (7-20); CALCIUM 9.8 mg/dL (8.4-10.2); CARBON DIOXIDE 25 mmol/L (22-30); CHLORIDE 106 mmol/L (98-107); GLUCOSE 105 mg/dL (75-110); SODIUM 146.9 mmol/L (137-145); TOTAL PROTEIN 7.7 g/dL (6.3-8.2)
[2017-08-04 21:29] LABS: LIPASE 7849.9 U/L (23-300)
[2017-08-04] MEDS ORDERED: NORMAL SALINE 1000 ML 1,000 ML IV ONE ×2 (21:35→23:51)
[2017-08-04] MEDS ORDERED: HYDROMORPHONE HCL INJ/PF 2 MG/ML AMPULE IV ONE ×2 (21:35→23:51)
--- NOTE | 2017-08-04 22:26 | RADIOLOGY REPORT (SQ) ---
EXAM DESCRIPTION: U/S ABDOMEN LIMITED W/O DOP COMPLETED DATE/TIME: 08/04/2017 10:14 pm REASON FOR STUDY: RUQ tenderness, pancreatitis, elevated LFTs COMPARISON: None. TECHNIQUE: Dynamic and static grayscale images acquired of the abdomen and recorded on PACS. Additio nal selected color Doppler and spectral images recorded. LIMITATIONS: None. FINDINGS: PANCREAS: Not visualized. LIVER: Fatty infiltration. No focal masses. LIVER VASCULATURE: Normal directional flow of the main portal vein and hepatic veins. GALLBLADDER: No stones. Normal wall thickness. No pericholecystic fluid. ULTRASOUND-DETECTED TORO'S SIGN: Negative. INTRAHEPATIC DUCTS AND COMMON DUCT: CBD and intrahepatic ducts normal caliber. No filling defects. INFERIOR VENA CAVA: Normal flow. AORTA: No aneurysm. RIGHT KIDNEY: Normal size. Normal echogenicity. No solid or suspicious masses. No hydronephrosis. No calcifications. PERITONEAL AND RIGHT PLEURAL SPACE: No ascites or effusions. OTHER: No other significant findings. IMPRESSION: Fatty liver. No gallstones. TECHNICAL DOCUMENTATION: JOB ID: [id number] [employer]- All Rights Reserved
--- NOTE | 2017-08-04 23:53 | RADIOLOGY REPORT (SQ) ---
EXAM DESCRIPTION: CT ABD/PELVIS WITH IV ONLY CLINICAL HISTORY: 37 years Male, upper abdominal pain COMPARISON: 01/17/1717, images only. 10.17.16. TECHNIQUE: 84 mL Isovue 370 IV contrast. Coronal and sagittal reformat. This exam was performed according to our departmental dose-optimization program, which includes automated exposure control, adjustment of the mA and/or kV according to patient size and/or use of iterative reconstruction technique. FINDINGS: No acute findings. No free fluid. Small colonic diverticulosis. Small bilateral inguinal fat only hernia measures up to 2 cm each. No evidence of appendicitis. Appendix not visualized. Mild hepatic steatosis with focal sparing. 0.2 cm right renal stone. Small L5-S1 vacuum disc bulge with osteophyte complex. Inferior thorax, liver, gallbladder, pancreas, spleen, adrenals, renal system, gastrointestinal tract, pelvic organs, lymphatics, vasculature, and musculoskeleton appear otherwise unremarkable. No significant free fluid. IMPRESSION: No acute findings. Small colonic diverticulosis. Punctate right renal renal stone.
[2017-08-05] MEDS ORDERED: KETOROLAC TROMETHAMINE INJ/PF 30 MG/1 ML SDV IV PRN (00:15)
[2017-08-05] MEDS ORDERED: HYDRALAZINE HCL INJ/PF 20 MG/1 ML SDV IV PRN (00:15)
[2017-08-05] MEDS ORDERED: MAG HYDROX/AL HYDROX/SIMETH SUSP 30 ML UDCUP PO PRN (00:16)
[2017-08-05] MEDS: HYDROMORPHONE HCL INJ/PF 2 MG/ML AMPULE SUBCUT PRN ×3 (02:43→09:05)
[2017-08-05] MEDS: NORMAL SALINE 1000 ML 1,000 ML IV PRN ×2 (03:17→07:30)
--- NOTE | 2017-08-05 05:04 | PDOC H&P ---
History of Present Illness Admission Date/PCP: 08/05/17 00:23 RONNIE LONDON MD Patient complains of: Abdominal pain and nausea History of Present Illness: BRO GONZALEZ III is a 37 year old male with a past medical history of posttraumatic stress disorder, chronic pain, asthma, GERD and diet-controlled diabetes. He been in his usual state of health approximately 5 days ago noted abdominal pain nausea vomiting and diarrhea following New Year's [place] where he had a suspicious meal of undercooked chicken. He denies bloody vomit or diarrhea, new medications, viral illness or previous episode. He admits to some quantity of alcohol consumption. In the emergency room he is found to have a lipase of 7500 and mildly elevated LFTs with normal bilirubin. CT imaging is unremarkable for pancreatic inflammation he receives symptomatic management and IV fluids and referred to the hospitalist for admission. Past Medical History Cardiac Medical History: Denies: Coronary Artery Disease, Myocardial Infarction, Hypertension Pulmonary Medical History: Reports: Asthma Denies: Bronchitis, Chronic Obstructive Pulmonary Disease (COPD), Pneumonia Neurological Medical History: Denies: Seizures Endocrine Medical History: Reports: Diabetes Mellitus Type 2 Denies: Diabetes Mellitus Type 1 GI Medical History: Reports: Gastroesophageal Reflux Disease Musculoskeltal Medical History: Denies: Arthritis - GOUT Psychiatric Medical History: Reports: Post Traumatic Stress Disorder Denies: Depression Hematology: Denies: Anemia Past Surgical History Past Surgical History: Reports: Appendectomy, Orthopedic Surgery Social History Smoking Status: Smoker,Current Status Unk Cigarettes Packs Per Day: 1 Number of Years Smokin Last Time Smoked: 08/05/17 Frequency of Alcohol Use: Occasional Hx Recreational Drug Use: No Drugs: None Hx Prescription Drug Abuse: No - Advance Directive Resuscitation Status: Full Code Family History Family History: DM, Hypertension Parental Family History Reviewed: Yes Children Family History Reviewed: Yes Sibling(s) Family History Reviewed.: Yes Medication/Allergy Home Medications: Albuterol Sulfate [Proair HFA Inhalation Aerosol 8.5 gm MDI] 2 puff IH Q4HP PRN 10/17/16 Budesonide/Formoterol Fumarate [Symbicort HFA 160-4.5 mcg Inhaler 6 gm] 1 puff IH Q12HP PRN 10/17/16 Montelukast Sodium [Singulair 10 mg Tablet] 10 mg PO DAILYP PRN 10/17/16 Allopurinol [Zyloprim 100 mg Tablet] 1 tab PO DAILY 07/14/17 Indomethacin [Indocin 50 mg Capsule] 1 cap PO DAILY 02/10/17 Tramadol HCl 1 tab PO QID PRN 02/10/17 Oxycodone HCl/Acetaminophen [Percocet 5-325 mg Tablet] 1 - 2 tab PO ASDIR PRN # 20 tablet 02/17/17 Allergies/Adverse Reactions: No Known Allergies Allergy (Unverified 08/04/17 17:43) Review of Systems Constitutional: ABSENT: chills, fever(s), headache(s), weight gain, weight loss Eyes: ABSENT: visual disturbances Ears: ABSENT: hearing changes Cardiovascular: ABSENT: chest pain, dyspnea on exertion, edema, orthropnea, palpitations Respiratory: ABSENT: cough, hemoptysis Gastrointestinal: ABSENT: abdominal pain, constipation, diarrhea, hematemesis, hematochezia, nausea, vomiting Genitourinary: ABSENT: dysuria, hematuria Musculoskeletal: ABSENT: joint swelling Integumentary: ABSENT: rash, wounds Neurological: ABSENT: abnormal gait, abnormal speech, confusion, dizziness, focal weakness, syncope Psychiatric: ABSENT: anxiety, depression, homidical ideation, suicidal ideation Endocrine: ABSENT: cold intolerance, heat intolerance, polydipsia, polyuria Hematologic/Lymphatic: ABSENT: easy bleeding, easy bruising Physical Exam Vital Signs: Temp Pulse Resp BP Pulse Ox 98.0 F 58 L 18 132/83 H 97 08/05/17 02:18 08/05/17 02:18 08/05/17 02:18 08/05/17 02:18 08/05/17 02:18 General appearance: PRESENT: mild distress, well-developed, well-nourished Head exam: PRESENT: atraumatic, normocephalic Eye exam: PRESENT: conjunctiva pink, EOMI, PERRLA. ABSENT: scleral icterus Ear exam: PRESENT: normal external ear exam Mouth exam: PRESENT: moist, tongue midline Neck exam: ABSENT: carotid bruit, JVD, lymphadenopathy, thyromegaly Respiratory exam: PRESENT: clear to auscultation mateo. ABSENT: rales, rhonchi, wheezes Cardiovascular exam: PRESENT: RRR. ABSENT: diastolic murmur, rubs, systolic murmur Pulses: PRESENT: normal dorsalis pedis pul Vascular exam: PRESENT: normal capillary refill GI/Abdominal exam: PRESENT: hyperactive bowel sounds, normal bowel sounds, soft , tenderness. ABSENT: distended, guarding, mass, organolmegaly, rebound Rectal exam: PRESENT: deferred Extremities exam: PRESENT: full ROM. ABSENT: calf tenderness, clubbing, pedal edema Neurological exam: PRESENT: alert, awake, oriented to person, oriented to place , oriented to time, oriented to situation, CN II-XII grossly intact. ABSENT: motor sensory deficit Psychiatric exam: PRESENT: appropriate affect, normal mood. ABSENT: homicidal ideation, suicidal ideation Skin exam: PRESENT: dry, intact, warm. ABSENT: cyanosis, rash Results Impressions: Abdomen Ultrasound 08/04/17 21:35 IMPRESSION: Fatty liver. No gallstones. Abdomen/Pelvis CT 08/04/17 22:16 IMPRESSION: No acute findings. Small colonic diverticulosis. Punctate right renal renal stone. Assessment & Plan - Diagnosis (1) Acute pancreatitis Qualifiers: Pancreatitis type: unspecified pancreatitis type Acute pancreatitis complication: unspecified Qualified Code(s): K85.90 - Acute pancreatitis without necrosis or infection, unspecified Is this a current diagnosis for this admission?: Yes Plan: Unclear cause with exposure to suspect meals versus viral gastroenteritis versus alcohol induced. Observation on medical floor, symptomatic management Allerest hydration and clear liquid diet challenge when pain-free. Follow-up triglyceride level (2) Abdominal pain Is this a current diagnosis for this admission?: Yes Plan: Bowel rest, Toradol as needed - Time Time Spent: 30 to 50 Minutes
[2017-08-05 05:07] LABS: HEMATOCRIT 34.1 % (37.9-51.0); MEAN CORPUSCULAR HEMOGLOBIN 32.2 pg (27.0-33.4); MEAN CORPUSCULAR HGB CONC 34.7 g/dL (32.0-36.0); MEAN CORPUSCULAR VOLUME 93 fl (80-97); PLATELET COUNT 283 10^3/uL (150-450); RED BLOOD COUNT 3.67 10^6/uL (4.35-5.55); RED CELL DISTRIBUTION WIDTH 12.8 % (11.5-14.0)
[2017-08-05 05:23] LABS: ALANINE AMINOTRANSFERASE 187 U/L (21-72); ALBUMIN 3.4 g/dL (3.5-5.0); ALKALINE PHOSPHATASE 147 U/L (38-126); ANION GAP 8 (5-19); ASPARTATE AMINO TRANSFERASE 97 U/L (17-59); BILIRUBIN,DIRECT 0.3 mg/dL (0.0-0.4); BILIRUBIN,TOTAL 0.4 mg/dL (0.2-1.3); BLOOD UREA NITROGEN 8 mg/dL (7-20); CALCIUM 8.2 mg/dL (8.4-10.2); CARBON DIOXIDE 27 mmol/L (22-30); CHLORIDE 108 mmol/L (98-107); GLUCOSE 105 mg/dL (75-110); SODIUM 143.4 mmol/L (137-145); TOTAL PROTEIN 5.9 g/dL (6.3-8.2)
[2017-08-05 05:24] LABS: HEMOGLOBIN 11.8 g/dL (13.5-17.0)
[2017-08-05] MEDS: HEPARIN SOD (PORCINE) 5,000 UNIT/ML 1 ML SYRINGE SUBCUT SCH ×3 (05:47→21:46)
[2017-08-05] MEDS ORDERED: NORMAL SALINE 1000 ML 1,000 ML IV PRN (07:51)
[2017-08-05] MEDS ORDERED: PROMETHAZINE HCL INJ 25 MG/1 ML VIAL IV PRN (08:24)
[2017-08-05] MEDS ORDERED: FENOFIBRATE NANOCRYSTALLIZED 48 MG TABLET PO SCH (10:00)
[2017-08-05] MEDS ORDERED: OXYCODONE HCL IR 5 MG TABLET PO PRN (13:09)
--- NOTE | 2017-08-05 14:37 | PDOC PROGRESS REPORT ---
Subjective Progress Note for:: 08/05/17 Subjective:: The patient is seen on morning rounds for follow-up of pancreatitis. He is found resting in bed comfortably. He states that his pain has been well managed with the pain medications and that his nausea has improved; he has had one episode of emesis today. He expresses a desire to eat. Reason For Visit: ABD PAIN ACUTE PANCREATITIS Physical Exam Vital Signs: Temp Pulse Resp BP Pulse Ox 98.5 F 65 16 103/75 97 08/05/17 12:00 08/05/17 12:00 08/05/17 12:00 08/05/17 12:00 08/05/17 12:00 Intake & Output 08/04/17 08/05/17 08/06/17 06:59 06:59 06:59 Intake Total 0 Balance 0 Weight 75.5 kg General appearance: PRESENT: no acute distress, well-developed, well-nourished, other - overweight Head exam: PRESENT: atraumatic, normocephalic Eye exam: PRESENT: conjunctiva pink, EOMI, PERRLA. ABSENT: scleral icterus Ear exam: PRESENT: normal external ear exam Mouth exam: PRESENT: moist, tongue midline Neck exam: ABSENT: carotid bruit, JVD, lymphadenopathy, thyromegaly Respiratory exam: PRESENT: clear to auscultation mateo. ABSENT: rales, rhonchi, wheezes Cardiovascular exam: PRESENT: RRR. ABSENT: diastolic murmur, rubs, systolic murmur Pulses: PRESENT: normal dorsalis pedis pul Vascular exam: PRESENT: normal capillary refill GI/Abdominal exam: PRESENT: normal bowel sounds, soft, tenderness. ABSENT: distended, guarding, mass, organolmegaly, rebound Rectal exam: PRESENT: deferred Extremities exam: PRESENT: full ROM. ABSENT: calf tenderness, clubbing, pedal edema Neurological exam: PRESENT: alert, awake, oriented to person, oriented to place , oriented to time, oriented to situation, CN II-XII grossly intact. ABSENT: motor sensory deficit Psychiatric exam: PRESENT: appropriate affect, normal mood. ABSENT: homicidal ideation, suicidal ideation Skin exam: PRESENT: dry, intact, warm. ABSENT: cyanosis, rash Results Laboratory Results: 08/05/17 04:16 08/05/17 04:16 08/05/17 08/05/17 04:16 04:16 WBC 9.0 RBC 3.67 L Hgb 11.8 L D Hct 34.1 L MCV 93 MCH 32.2 MCHC 34.7 RDW 12.8 Plt Count 283 Sodium 143.4 Potassium 4.0 Chloride 108 H Carbon Dioxide 27 Anion Gap 8 BUN 8 Creatinine 0.69 Est GFR ( Amer) > 60 Est GFR (Non-Af Amer) > 60 Glucose 105 Calcium 8.2 L Total Bilirubin 0.4 AST 97 H ALT 187 H Alkaline Phosphatase 147 H Total Protein 5.9 L Albumin 3.4 L Impressions: Abdomen Ultrasound 08/04/17 21:35 IMPRESSION: Fatty liver. No gallstones. Abdomen/Pelvis CT 08/04/17 22:16 IMPRESSION: No acute findings. Small colonic diverticulosis. Punctate right renal renal stone. Assessment & Plan - Diagnosis (1) Acute pancreatitis Qualifiers: Pancreatitis type: unspecified pancreatitis type Acute pancreatitis complication: unspecified Qualified Code(s): K85.90 - Acute pancreatitis without necrosis or infection, unspecified Is this a current diagnosis for this admission?: Yes Plan: The patient was admitted under observational status to the floor. He was initially placed on bowel rest with ice chips only. He was provided IV fluid hydration. Pain was managed with Toradol and Dilaudid as needed. He received Phenergan as needed for nausea and vomiting. He is now tolerating water and requests to advance his diet to a clear liquid diet. Will discontinue Dilaudid and provide oxycodone p.o. as needed pain. Start on clear liquids and advance diet as tolerated. Anticipate discharge to home in the morning. (2) Abdominal pain Is this a current diagnosis for this admission?: Yes Plan: Secondary to #1. Plan as above. (3) Hypertriglyceridemia Is this a current diagnosis for this admission?: Yes Plan: Will start on fenofibrate. Advised patient on a low-fat diet. - Time Time Spent with patient: 15-24 minutes Medications reviewed and adjusted accordingly: Yes Anticipated discharge: Home Within: within 24 hours - if tolerating p.o.
[2017-08-06 04:54] LABS: HEMATOCRIT 33.1 % (37.9-51.0); HEMOGLOBIN 11.6 g/dL (13.5-17.0); MEAN CORPUSCULAR HEMOGLOBIN 32.6 pg (27.0-33.4); MEAN CORPUSCULAR HGB CONC 34.9 g/dL (32.0-36.0); MEAN CORPUSCULAR VOLUME 93 fl (80-97); PLATELET COUNT 289 10^3/uL (150-450); RED BLOOD COUNT 3.55 10^6/uL (4.35-5.55); RED CELL DISTRIBUTION WIDTH 13.1 % (11.5-14.0); WHITE BLOOD COUNT 6.7 10^3/uL (4.0-10.5)
[2017-08-06 05:26] LABS: ANION GAP 11 (5-19); BLOOD UREA NITROGEN 5 mg/dL (7-20); CALCIUM 8.9 mg/dL (8.4-10.2); CARBON DIOXIDE 23 mmol/L (22-30); CHLORIDE 107 mmol/L (98-107); GLUCOSE 148 mg/dL (75-110); POTASSIUM 3.9 mmol/L (3.6-5.0); SODIUM 141.4 mmol/L (137-145)
[2017-08-06] MEDS: HEPARIN SOD (PORCINE) 5,000 UNIT/ML 1 ML SYRINGE SUBCUT SCH (05:37)
[2017-08-06 06:11] LABS: LIPASE 5225.9 U/L (23-300)
[2017-08-06 07:38] LABS: HEPATITIS A AB IGM Negative (Negative); HEPATITIS B CORE AB IGM Negative (Negative); HEPATITS B SURFACE ANTIGEN Negative (Negative)
[2017-08-06 08:16] LABS: HEPATITIS C VIRUS ANTIBODY <0.1 s/co ratio (0.0-0.9)
[2017-08-06 09:06] VITALS: BP 110/75
--- NOTE | 2017-08-07 15:25 | PDOC DISCHARGE SUMMARY ---
General - Admit/Disc Date/PCP Admission Date/Primary Care Provider: 08/05/17 00:23 RONNIE LONDON MD Discharge Date: 08/07/17 - Discharge Diagnosis (1) Acute pancreatitis Is this a current diagnosis for this admission?: Yes (2) Abdominal pain Is this a current diagnosis for this admission?: Yes (3) Hypertriglyceridemia Is this a current diagnosis for this admission?: Yes - Additional Information Resuscitation Status: Full Code Discharge Diet: As Tolerated, Regular, Other (Comments) Discharge Activity: Activity As Tolerated, Slowly Increase Activity Prescriptions: Fenofibrate Nanocrystallized [Tricor 48 mg Tablet] 48 mg PO DAILY #30 tablet Oxycodone HCl [Oxy-Ir 5 mg Tablet] 5 mg PO Q4HP PRN #18 tablet PRN Reason: Promethazine HCl 12.5 mg PO Q8HP PRN #12 tablet PRN Reason: For Nausea/Vomiting Home Medications: Fenofibrate Nanocrystallized [Tricor 48 mg Tablet] 48 mg PO DAILY #30 tablet 02/14 Oxycodone HCl [Oxy-Ir 5 mg Tablet] 5 mg PO Q4HP PRN #18 tablet 08/06/17 Promethazine HCl 12.5 mg PO Q8HP PRN #12 tablet 08/06/17 History of Present Illness History of Present Illness: Per H&P by Dr. London: BRO GONZALEZ III is a 37 year old male with a past medical history of posttraumatic stress disorder, chronic pain, asthma, GERD and diet-controlled diabetes. He has been in his usual state of health until approximately 5 days ago when he noted abdominal pain nausea vomiting and diarrhea following New '[place] where he had is suspicious middle of undercooked chicken. He denies bloody vomit or diarrhea, new medications, viral illness or previous episodes. He admits to some quantity of alcohol consumption. In the emergency room he is found to have a lipase of 7500 and mildly elevated LFTs with normal bilirubin. CT imaging is unremarkable for pancreatic inflammation he received symptomatic management and IV fluids and referred to the hospitalist for admission. Hospital Course Hospital Course: The patient was admitted with acute pancreatitis. He was placed on n.p.o. status and provided IV fluid resuscitation. He was provided narcotic pain medications and antiemetics. His pain improved rapidly and by the following morning was tolerating a clear liquid diet. He was transitioned to oral pain medications and his diet was advanced as tolerated. Follow-up LFTs trended downwards, lipase improved, and acute hepatitis panel was negative. He was noted to have an elevated triglyceride count of 344 and so was placed on fenofibrate. At time of discharge, the patient was stable, pain-free, and tolerating a regular diet. He was provided prescriptions for TriCor, oxycodone, and promethazine. He was advised to eat a low-fat diet and avoid all alcohol consumption. He is encouraged to follow-up with his primary care provider within 1-2 weeks. Physical Exam Vital Signs: Temp Pulse Resp BP Pulse Ox 98.6 F 51 L 16 110/75 96 08/06/17 09:04 08/06/17 09:04 08/06/17 09:04 08/06/17 09:04 08/06/17 09:04 Intake & Output 08/06/17 08/07/17 08/08/17 06:59 06:59 06:59 Intake Total 1740 Output Total 950 Balance 790 Weight 75.5 kg General appearance: PRESENT: no acute distress, well-developed, well-nourished, other - overweight Head exam: PRESENT: atraumatic, normocephalic Eye exam: PRESENT: conjunctiva pink, EOMI, PERRLA. ABSENT: scleral icterus Ear exam: PRESENT: normal external ear exam Mouth exam: PRESENT: moist, tongue midline Neck exam: ABSENT: carotid bruit, JVD, lymphadenopathy, thyromegaly Respiratory exam: PRESENT: clear to auscultation mateo, symmetrical, unlabored. ABSENT: rales, rhonchi, wheezes Cardiovascular exam: PRESENT: RRR, +S1, +S2. ABSENT: diastolic murmur, rubs, systolic murmur Pulses: PRESENT: normal dorsalis pedis pul Vascular exam: PRESENT: normal capillary refill GI/Abdominal exam: PRESENT: normal bowel sounds, soft, tenderness - improved. ABSENT: distended, guarding, mass, organolmegaly, rebound Rectal exam: PRESENT: deferred Extremities exam: PRESENT: full ROM. ABSENT: calf tenderness, clubbing, pedal edema Neurological exam: PRESENT: alert, awake, oriented to person, oriented to place , oriented to time, oriented to situation, CN II-XII grossly intact. ABSENT: motor sensory deficit Psychiatric exam: PRESENT: appropriate affect, normal mood. ABSENT: homicidal ideation, suicidal ideation Skin exam: PRESENT: dry, intact, warm. ABSENT: cyanosis, rash Results Laboratory Results: 08/06/17 04:00 08/06/17 04:00 08/05/17 20:50 Stool - Stool - Final 08/05/17 20:50 Stool - Stool Stool Culture - Final Impressions: Abdomen Ultrasound 08/04/17 21:35 IMPRESSION: Fatty liver. No gallstones. Abdomen/Pelvis CT 08/04/17 22:16 IMPRESSION: No acute findings. Small colonic diverticulosis. Punctate right renal renal stone. Qualifiers PATEINT BEING DISCHARGED WITH ANY OF THE FOLLOWING DIAGNOSIS?: No
== END 2017-08-06 09:33 | disposition home or self-care (01) ==
LOC: ER 17:33 → INTOOBSV 08-05 00:23 → EH 08-05 00:23 → 5 08-05 01:22
PROVIDERS: ADMIT Internal Medicine; ATTEND Internal Medicine
DX: K85.90 Acute pancreatitis without necrosis or infection, unspecified (principal); E78.1 Pure hyperglyceridemia; E11.9 Type 2 diabetes mellitus without complications; F17.210 Nicotine dependence, cigarettes, uncomplicated; N20.0 Calculus of kidney; K57.30 Diverticulosis of large intestine without perforation or abscess without bleeding; G89.29 Other chronic pain; J45.909 Unspecified asthma, uncomplicated; Z79.899 Other long term (current) drug therapy; Z90.49 Acquired absence of other specified parts of digestive tract; Z79.52 Long term (current) use of systemic steroids
CPT/HCPCS: 99285; 36415 ×3; 87045; 87205; 83690 ×2; 84478; 85025; 85027 ×2; 80048; 80053 ×2; 80074; 76705; 74177; J1644; J3490 ×4; J1170 ×2; J2550; J7030 ×2

== ENCOUNTER 2019-03-12 14:39 | Emergency (ER) | payer MEDICAID, OTHER ==
--- NOTE | 2019-03-12 17:12 | ER Document Report ---
ED Medical Screen (RME) - General Chief Complaint: Vomiting Stated Complaint: VOMITING [facility] - Follow up as needed Notes: HPI: 38-year-old male with a history of gout, depression, asthma, allergic rhinitis, here for nonbloody nonbilious vomiting and nonbloody diarrhea that is becoming more persistent and frequent to the point he is no longer tolerating p.o. over the last several days. He states his symptoms have been ongoing for 2 months. He states his symptoms started shortly after he was started on sertraline by the [place]. He states he has tried to get a follow-up appointment with them however they have not had anything available as of yet. He states he has some intermittent diffuse crampy periumbilical abdominal pain that is occurring more persistent as well. Secondary to not being able to keep anything down today he came in for evaluation. He denies any SI, HI, visual/auditory hallucinations. No fall or trauma. He has had a remote umbilical hernia repair and appendectomy but denies any abdominal surgeries. No recent antibiotics or steroids. No history of diabetes or asthma. No recent foreign travel. No other complaints this time. ROS neg to include 10 systems, unless mentioned in the hpi. PE:>>>> PHYSICAL_EXAM: GENERAL_APPEARANCE: well_nourished, alert, cooperative, no_acute_distress, no_obvious_discomfort. pleasant, Young, thin white male,smiling, speaking in full sentences, in no sign of pain or resp distress, VITALS: reviewed, see vital signs table. HEAD: no_swelling\tenderness on the head. normocephalic. atraumatic. no sheppard signs. no raccoons eyes. EYES: PERRL, EOMI, conjunctiva_clear. NOSE: no_nasal_discharge. MOUTH: (-)decreased moisture. THROAT: no_tonsilar_inflammation, no_airway_obstruction. no_lymphadenopathy NECK: supple, no_neck_tenderness, full rom. full strength. BACK: no_back_tenderness. CHEST_WALL: no_chest_tenderness. no overlying skin changes LUNGS: no_wheezing, ctab (-)accessory muscle use, good air exchange bilateral. HEART: normal_rate, normal_rhythm, ABDOMEN: normal_BS, soft, mildly ttp in the epigastrium and periumbilically, (-)guarding, (-)rebound, no distension or peritoneal signs. no cva ttp EXTREMITIES: strength 5/5 in all_extremities, good pulses in all_extremities, no_swelling\tenderness in the extremities, no_edema. full rom. normal gait. good pulses. brisk cap refill. good hand folder seamer automatic. NEURO: motor and sensation intact, SKIN: warm, dry, good_color, no_rash. MENTAL_STATUS: speech_clear, oriented_X_3, normal_affect, responds_appropriately to questions. MDM: I have ordered labs and initial work-up and patient will be transferred to the main ER for further work-up. I have greeted and performed a rapid initial assessment of this patient. A comprehensive ED assessment and evaluation of the patient, analysis of test results and completion of medical decision making process will be conducted by an additional ED providers. Documentation achieved through voice recording which my lead to some occasional accidental typographical errors. Extensive efforts have been made to proof read documentation to make sure these are the least as possible Temp Pulse Resp BP 03/12/19 14:42 98 F 78 20 139/84 H Category Date Time Status CBC WITH DIFF [HEME] Stat Lab 03/12/19 17:12 Ordered COMPREHENSIVE METABOLIC PANEL [CHEM] Stat Lab 03/12/19 17:12 Ordered CREATINE KINASE [CHEM] Stat Lab 03/12/19 17:13 Ordered LIPASE [CHEM] Stat Lab 03/12/19 17:13 Ordered MAGNESIUM [CHEM] Stat Lab 03/12/19 17:13 Ordered STOOL CULTURE+GRAM STAIN(WBC) [MC] Stat Lab 03/12/19 17:14 Uncollected URINALYSIS [URIN] Stat Lab 03/12/19 17:13 Uncollected Normal Saline 1000 ml [NaCl 0.9% 1000 ml IV Soln] 1,000 Med 03/12/19 17:14 Ordered ml IV BOLUS Ondansetron HCl/Pf [Zofran Inj/Pf 4 mg/2 ml Sdv] Med 03/12/19 17:14 Once 4 mg IV NOW ONE TRAVEL OUTSIDE OF THE [place] IN LAST 30 DAYS: No - Related Data Allergies/Adverse Reactions: No Known Allergies Allergy (Verified 03/12/19 14:40) Past Medical History - Social History Chew tobacco use (# tins/day): No Frequency of alcohol use: Occasional Drug Abuse: None - Past Medical History Cardiac Medical History: Denies: Hx Coronary Artery Disease, Hx Heart Attack, Hx Hypertension Pulmonary Medical History: Reports: Hx Asthma Denies: Hx Bronchitis, Hx COPD, Hx Pneumonia Neurological Medical History: Denies: Hx Cerebrovascular Accident, Hx Seizures Endocrine Medical History: Reports: Hx Diabetes Mellitus Type 2. Denies: Hx Diabetes Mellitus Type 1 Renal/ Medical History: Reports: Hx Kidney Stones. Denies: Hx Peritoneal Dialysis GI Medical History: Reports: Hx Gastroesophageal Reflux Disease Musculoskeltal Medical History: Denies Hx Arthritis - GOUT Psychiatric Medical History: Reports: Hx Post Traumatic Stress Disorder Denies: Hx Depression Past Surgical History: Reports: Hx Appendectomy, Hx Orthopedic Surgery - Immunizations Immunizations up to date: Yes Hx Diphtheria, Pertussis, Tetanus Vaccination: Yes History of Influenza Vaccine for 04/2017 - 09/2017 Season: Refused Physical Exam - Vital signs Vitals: Temp Pulse Resp BP 98 F 78 20 139/84 H 03/12/19 14:42 03/12/19 14:42 03/12/19 14:42 03/12/19 14:42 Course - Vital Signs Vital signs: Temp Pulse Resp BP Pulse Ox 98 F 78 20 139/84 H 03/12/19 14:42 03/12/19 14:42 03/12/19 14:42 03/12/19 14:42 Doctor's Discharge - Discharge [facility]errals: [facility] [[facility] - Follow up as needed
[2019-03-12] MEDS ORDERED: ONDANSETRON HCL INJ/PF 4 MG/2 ML SDV IV ONE (17:14)
[2019-03-12] MEDS ORDERED: NORMAL SALINE 1000 ML 1,000 ML IV ONE (17:14)
[2019-03-12 18:09] LABS: ABSOLUTE BASOPHILS # (AUTO) 0.1 10^3/uL (0.0-0.2); ABSOLUTE EOSINOPHILS # (AUTO) 0.2 10^3/uL (0.0-0.6); ABSOLUTE LYMPHOCYTES (AUTO) 2.3 10^3/uL (0.5-4.7); ABSOLUTE MONOCYTES (AUTO) 0.6 10^3/uL (0.1-1.4); ABSOLUTE NEUT (AUTO) 5.8 10^3/uL (1.7-8.2); BASOPHILS % (AUTO) 0.8 % (0-2); HEMATOCRIT 43.9 % (37.9-51.0); HEMOGLOBIN 15.8 g/dL (13.5-17.0); LYMPHOCYTES % (AUTO) 25.4 % (13-45); MEAN CORPUSCULAR HEMOGLOBIN 33.8 pg (27.0-33.4); MEAN CORPUSCULAR HGB CONC 35.9 g/dL (32.0-36.0); MEAN CORPUSCULAR VOLUME 94 fl (80-97); MONOCYTES % (AUTO) 6.9 % (3-13); PLATELET COUNT 229 10^3/uL (150-450); RED BLOOD COUNT 4.67 10^6/uL (4.35-5.55); RED CELL DISTRIBUTION WIDTH 12.6 % (11.5-14.0); SEGMENTED NEUTROPHILS % (AUTO) 64.9 % (42-78); TOTAL CELLS COUNTED % (AUTO) 100 %
[2019-03-12 18:27] LABS: ALBUMIN 5.2 g/dL (3.5-5.0); ALKALINE PHOSPHATASE 90 U/L (38-126); ANION GAP 12 (5-19); ASPARTATE AMINO TRANSFERASE 87 U/L (17-59); BILIRUBIN,DIRECT 0.4 mg/dL (0.0-0.4); BLOOD UREA NITROGEN 15 mg/dL (7-20); CALCIUM 9.9 mg/dL (8.4-10.2); CARBON DIOXIDE 30 mmol/L (22-30); CHLORIDE 100 mmol/L (98-107); GLUCOSE 85 mg/dL (75-110); POTASSIUM 4.4 mmol/L (3.6-5.0)
[2019-03-12 21:01] LABS: APPEARANCE,URINE SLIGHTLY-CLOUDY; BILIRUBIN,URINE NEGATIVE (NEGATIVE); COLOR,URINE YELLOW; GLUCOSE, URINE NEGATIVE (NEGATIVE); KETONES,URINE TRACE mg/dL (NEGATIVE); LEUKOCYTE ESTERASE,URINE NEGATIVE (NEGATIVE); NITRITE,URINE NEGATIVE (NEGATIVE); PROTEIN,URINE NEGATIVE (NEGATIVE); URINE SPECIFIC GRAVITY 1.023
[2019-03-12] MEDS ORDERED: KETOROLAC TROMETHAMINE INJ/PF 30 MG/1 ML SDV IV ONE (21:05)
[2019-03-12] MEDS ORDERED: LORAZEPAM 0.5 MG TABLET PO ONE (21:05)
[2019-03-12] MEDS ORDERED: METOCLOPRAMIDE HCL INJ/PF 10 MG/2 ML SDV IV ONE (21:05)
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
[2019-03-12 22:14] VITALS: BP 135/76
== END 2019-03-12 22:14 | disposition home or self-care (01) ==
LOC: ER 14:39
DX: F41.9 Anxiety disorder, unspecified (principal); R11.2 Nausea with vomiting, unspecified; R19.7 Diarrhea, unspecified; F43.10 Post-traumatic stress disorder, unspecified; Z79.899 Other long term (current) drug therapy; R51 Headache; J45.909 Unspecified asthma, uncomplicated; Z87.891 Personal history of nicotine dependence; Z87.19 Personal history of other diseases of the digestive system; Z90.49 Acquired absence of other specified parts of digestive tract
CPT/HCPCS: 99284; 96361; 96374; 96375; 36415; 82550; 83690; 83735; 85025; 80053; 81001; J1885; J2765; J2405; J7030

== ENCOUNTER 2019-04-30 19:08 | Emergency (ER) | payer OTHER ==
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
[2019-04-30 19:34] VITALS: BP 144/99
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
[2019-04-30] MEDS ORDERED: ACETAMINOPHEN 325 MG TABLET ONE (20:28)
[2019-04-30] MEDS ORDERED: ACETAMINOPHEN 325 MG TABLET PO ONE (20:48)
[2019-04-30] MEDS ORDERED: OXYCODONE HCL IR 5 MG TABLET PO ONE (20:48)
[2019-04-30] MEDS ORDERED: DIPH/PERTUSS(ACELL)/TETANUS VAC/PF 0.5 ML SYR (>=10YO) IM ONE (20:49)
[2019-04-30] MEDS ORDERED: LIDOCAINE 4%/TETRACAINE 0.5%/EPI 0.18% 5 ML TOPICAL SOLN TOP ONE (21:47)
== END 2019-04-30 22:49 | disposition home or self-care (01) ==
LOC: ER 19:08
DX: S01.01XA Laceration without foreign body of scalp, initial encounter (principal); R51 Headache; Y08.89XA Assault by other specified means, initial encounter; Y93.89 Activity, other specified; Y92.59 Other trade areas as the place of occurrence of the external cause; Z23 Encounter for immunization; E11.9 Type 2 diabetes mellitus without complications; J45.909 Unspecified asthma, uncomplicated; F17.200 Nicotine dependence, unspecified, uncomplicated
CPT/HCPCS: 12001; 99284; 90471; 70450; 90715; J3490